=== PATIENT | female | born 1940 | race Caucasian/White ===

== ENCOUNTER 2018-02-15 07:13 | Day surgery (SDC) | payer MEDICARE, BC ==
--- NOTE | 2018-02-06 17:19 | HP ---
CC: Dr. Valeriy Steel * PREOPERATIVE HISTORY AND PHYSICAL: DATE OF ADMISSION: 02/15/18 This patient is scheduled for same-day surgery admission by Dr. Ruvalcaba on , 02/15/18. DATE OF PREOPERATIVE HISTORY AND PHYSICAL EXAMINATION: 02/06/18. ATTENDING SURGEON: Dr. Ghulam Ruvalcaba * (dictated by Beatris Deshpande NP). CHIEF COMPLAINT: Abdominal pain. HISTORY OF PRESENT ILLNESS: The patient is a 77-year-old female referred to Dr. Ruvalcaba by Dr. Steel for evaluation of upper abdominal pain. She has a history of certain movements causing intense pain in the upper abdomen to the right of midline. This first started in October of this year. It usually spontaneously resolves. She has had multiple abdominal surgeries including laparoscopic repair of a giant paraesophageal hiatal hernia with anterior plication with patch repair of the left upper quadrant ventral hernia, extensive lysis of adhesions, and repair of a small bowel serosal tear in [address] Ruvalcaba. More recently, she has had a CAT scan of the abdomen and pelvis , which Dr. Ruvalcaba reviewed; she denies any signs or symptoms that suggest incarceration or strangulation. She does have intermittent acid reflux and occasionally has early satiety. Dr. Ruvalcaba examined the patient and notes a tender mass to the right of the midline above the umbilicus that feels like a small ventral hernia with an approximate 2-cm defect. This corresponds to the area seen on the CT scan. Furthermore, she has a moderately large paraesophageal-type hiatal hernia and the contrast does pass through. Dr. Ruvalcaba discussed the findings with the patient and because the ventral hernia is symptomatic, he has recommended open ventral hernia repair with mesh as a same-day surgery procedure. Dr. Ruvalcaba discussed the nature of the surgical procedure, the relevant risks and benefits, and today I reviewed the expected postoperative care and recovery. The patient has had a chance to ask questions and stated that she understands the information and is satisfied with the answers given to her questions. She will sign surgical consent on the day of surgery. PAST MEDICAL HISTORY: Significant for hypertension, GERD, dyslipidemia, and osteoporosis. PAST SURGICAL HISTORY: Laparoscopic repair of giant paraesophageal hernia with anterior plication with patch repair, left upper quadrant ventral hernia, extensive lysis of adhesions and repair of small bowel serosal tear, 2008, by Dr. Ruvalcaba; left knee surgery in 1993; total abdominal hysterectomy and bilateral salpingo- oophorectomy in 1989. MEDICATIONS: 1. Lisinopril/hydrochlorothiazide 10/12.5 mg p.o. daily. 2. Pantoprazole 40 mg p.o. daily. 3. Tylenol Extra Strength 500 mg 2 tablets p.o. t.i.d. p.r.n. 4. Vitamin B12 1000 mcg p.o. daily. 5. Oxaprozin 600 mg b.i.d. p.r.n. ALLERGIES: PENICILLIN and AMPICILLIN caused unspecified reaction, VICODIN and DARVOCET cause GI upset, and most SURGICAL TAPES cause blistering of the skin. FAMILY HISTORY: No known anesthesia complications or bleeding tendencies or clotting disorders. SOCIAL HISTORY: She lives with her daughter. She has never been a smoker. She is a . REVIEW OF SYSTEMS: Constitutional: No fevers, chills, excessive fatigue, or weight loss. Endocrine: No diabetes or thyroid disease. Hematologic: No easy bruising or bleeding. The patient has never received a blood transfusion as she is a Jain. Respiratory: No dyspnea on exertion. No chronic cough. Cardiovascular: No anginal chest pain or palpitations. Gastrointestinal: No nausea, vomiting, diarrhea, GI bleeding; she does take milk of magnesia 15 mL at bedtime for prevention of constipation; she denies any change in bowel habits; she does have intermittent heartburn and does have a moderately large paraesophageal- type hiatal hernia; she does experience intermittent early satiety; Dr. Ruvalcaba indicated with regard to the hiatal hernia that she is only mildly symptomatic from that and surgery is not indicated at this time. Genitourinary : No dysuria. Musculoskeletal: Osteoporosis. She walks with a cane. Integumentary: No chronic rashes or skin changes. Neurologic: No headache, blurred vision. No areas of focal weakness or numbness. General: No history of deep vein thrombosis or pulmonary embolism. She states with previous anesthesia, she was nauseated. PHYSICAL EXAMINATION GENERAL: The patient is a 77-year-old female, well developed, overweight, in no acute distress. VITAL SIGNS: Height 61 inches, weight 183 pounds, body mass index 34.6, blood pressure 118/78, pulse 66 and regular, respiratory rate 18, temperature 97.6 tympanic. HEENT: Benign. NECK: Supple. No cervical lymphadenopathy. No supraclavicular lymphadenopathy. LUNGS: Breath sounds bilaterally clear and equal. HEART: Regular rate and rhythm. No murmurs or rubs appreciated. ABDOMEN: Active bowel sounds, well-healed surgical scars. Soft and nondistended. There is a tender palpable mass to the right of the midline above the umbilicus that feels like a small ventral hernia with an approximate 2-cm defect. No other obvious masses or organomegaly. No skin fold rashes. EXTREMITIES: Warm without edema or skin ulcerations. PELVIC AND RECTAL: Exams deferred. NEUROLOGIC: Alert and oriented x3. Gait is steady with the use of cane. BACK: No CVA tenderness. SKIN: Warm, dry, intact. IMPRESSION: Ventral hernia. PLAN: Same-day surgery admission to Dr. Ruvalcaba's service on , 02/15/18 , for open ventral hernia repair with mesh. EUGENE DESHPANDE, ASHLEIGH [id number]/[facility] #: [id number] PHAN
[~2018-02-15 07:13] MED LIST: Buffered Lidocaine 0.9% SYRIN* 5 ML/SYR SYRINGE INTRADERM ONE; Buffered Lidocaine 0.9% SYRIN* 5 ML/SYR SYRINGE ONE; Clindamycin 900 MG/D5W BAG(*) 900 MG/50 ML BAG IVPB ONE; Dexamethasone TAB* 4 MG ONE; Dexamethasone TAB* 4 MG PO ONE; DiMENhydriNATE IV* 50 MG/ML VIAL IV PUSH PRN; Famotidine IV* 10 MG/ML 2 ML (20 mg) IV ONE; Famotidine IV* 10 MG/ML 2 ML (20 mg) ONE; Naloxone* 0.4 MG/ML 1 ML VIAL IV PRN; Ondansetron ODT TAB* 4 MG ONE; Ondansetron TAB* 4 MG PO ONE; PROCHLORPERAZINE INJ 5 MG/ML 2 ML VIAL IV PRN; fentaNYL* 50 MCG/ML 2 ML VIAL (100 MCG VIAL) IV PRN
[2018-02-15] MEDS ORDERED: Midazolam* 1 MG/ML 5 ML VIAL (5 MG) ONE (08:01)
[2018-02-15] MEDS ORDERED: fentaNYL* 50 MCG/ML 2 ML VIAL (100 MCG VIAL) ONE (08:01)
[2018-02-15] MEDS ORDERED: KETAMINE HCL* 50 MG/ML 10 ML VIAL ONE (08:01)
[2018-02-15] MEDS ORDERED: Lidocaine 1% INJ* 10 MG/ML 30 ML SDV ONE (08:21)
[2018-02-15] MEDS ORDERED: Bupivacaine 0.5% SDV PF* 30ML VIAL ONE (08:21)
[2018-02-15] MEDS ORDERED: Propofol* 10 MG/ML 20 ML BTL IV PUSH ONE (09:33)
[2018-02-15] MEDS ORDERED: Lidocaine 2% PF * 5 ML VIAL ONE (09:33)
--- NOTE | 2018-02-15 09:44 | OP ---
Operative Report - Blank - Operative Report Date of Operation: 02/15/18 Note: Brief Operative Note Preop Dx: ventral hernia Postop Dx: same Procedure: open repair ventral hernia w/ mesh Anesthesia: local MAC Surgeon: Peg Wheelman: ANGELA Cherry Fluids: 500 ml EBL: 25 ml Specimen: none Drains: none Findings: dictated
[2018-02-15] MEDS ORDERED: Acetaminophen TAB* 325 MG ONE (10:44)
[2018-02-15 11:30] VITALS: BP 141/73
--- NOTE | 2018-02-16 00:46 | OP ---
CC: Dr. Ruvalcaba; Dr. Steel OPERATIVE REPORT: DATE OF OPERATION: 02/15/18 DATE OF : 44 SURGEON: Ghulam Ruvalcaba MD QUANTITATIVE DEVELOPER: ANGELA Park ANESTHESIOLOGIST: Dr. Bill ANESTHESIA: LMAC anesthesia. PRE-OP DIAGNOSIS: Ventral hernia. POST-OP DIAGNOSIS: Ventral hernia. OPERATIVE PROCEDURE: Open repair of ventral hernia with mesh. DESCRIPTION OF PROCEDURE: The patient was supine on the operative table. After adequate intravenous sedation, compression stockings, Braydon Hugger warmer, and intravenous antibiotics, the abdomen was pr epped with antiseptic and draped in a sterile fashion. Local infiltrative anesthesia was administere d and approximately 3 to 4 cm incision was created midway between the xiphoid and the umbilicus. Appr oximately, 3 to 4 cm hernia was identified which reduced down to about a 2 to 3 cm defect. The prepe ritoneal plane was developed. Palpation internally revealed the old mesh to be secure. I think the bulging above the umbilicus is just some bulging of the mesh in that area. There is no true defect. Therefore, an 8 cm underlay patch was chosen. This was secured in 8 places around the circumference with #1 Vicryl up to the abdominal wall and then the fascia was closed over top with 0 Vicryl which was used to attach to the patch as well. Adipose was reapproximated with 3-0 Vicryl and skin closed with 4-0 Vicryl followed by Steri- Strips. She tolerated the procedure well, was brought to Recovery in good condition. There were no complications. No drains. No pathologic specimen. Sponge, instru ments counts correct. Estimated blood loss 20 mL. [id number]/[facility] #: [id number]
== END 2018-02-15 11:38 | disposition home or self-care (01) ==
LOC: OR 07:13
PROVIDERS: ATTEND Surgery
DX: K43.9 Ventral hernia without obstruction or gangrene (principal); I10 Essential (primary) hypertension; K21.9 Gastro-esophageal reflux disease without esophagitis; E78.5 Hyperlipidemia, unspecified; M81.0 Age-related osteoporosis without current pathological fracture
CPT/HCPCS: A9270-GY; C1781; J2250; J2704; J3010; J8540

== ENCOUNTER 2018-04-17 12:52 | Emergency (ER) | payer MEDICARE, BC ==
--- OUTSIDE RECORDS SUMMARY | 2018-04-17 12:58 | XMS REPORT | Continuity of Care Document ---
:1940 External Reference #:[id number] Author Name Valeriy Steel M.D. Address [address] [facility] [address] [place] [address] Care Team Providers Name Role Phone HCP/LW on file Primary Care Physician Unavailable Payers Type Date Identification Numbers Payment Provider Subscriber Effective: Policy Number: [id number] [facility] Santiago Menardham 2007 Services PayID: [id number] [address] [place] [address] Effective: 2014 Policy Number: [id number] [place] Santiago Isidro Group Number: [id number] [address] PayID: [id number] [place] [address] Advance Directives Description No Information Available Problems Date Description Provider Status Onset: 01/18/2003 Localized, secondary osteoarthritis Valeriy Steel M.D. Active Onset: 01/18/2003 Disorder of lipid metabolism Valeriy Steel M.D. Active Onset: 01/18/2003 Morbid obesity Valeriy Steel M.D. Active Onset: 08/03/2005 Benign essential hypertension Valeriy Steel M.D. Active Onset: 08/03/2005 Degeneration of lumbar intervertebral Valeriy Steel M.D. Active disc Onset: 03/23/2011 Impaired fasting glycaemia Valeriy Steel M.D. Active Onset: 03/23/2011 History of polyp of colon Valeriy Steel M.D. Active Onset: 09/24/2012 Gastroesophageal reflux disease Valeriy Steel M.D. Active Onset: 09/24/2012 Osteochondropathy Valeriy Steel M.D. Active Onset: 11/23/2012 Backache Zbigniew Kellogg D.O. Active Onset: 11/23/2012 Myalgia & Myositis Unspecified Zbigniew Kellogg D.O. Active Onset: 03/29/2017 Osteoporosis Valeriy Steel M.D. Active Family History Date Family Member(s) Problem(s) Comments Onset: (age 60 Father [place] Years) : (age Father due to [place] 60 Years) Father Cancer Father Heart Disease Mother Non Insulin Dependent Diabetes Mother due to Diabetes () - complications First Son [place] First Son 1965 First Daughter Ashlyn Carlos Enrique First Daughter 1968 First Brother Obesity First Brother due to Diabetes () - complications First Brother Diabetes, Type II First Brother Jessie Anthony First Brother 11/22/84 Second Brother Heart Disease Second Brother Abel Anthony Second Brother 02/20/38 First Sister Non Insulin Dependent Diabetes First Sister Hypertension First Sister [place] Social History Type Date Description Comments Sex Unknown Education Highest level of education completed is 12th grade Marital Status Patient is ( 07/10/14) Employment Not currently working; retired. Tobacco Use Start: Unknown Tobacco Of Any Kind Denies Use ETOH Use Never used alcohol Tobacco Use Start: Unknown Patient has never smoked Smoking Status Reviewed: 09/26/17 Patient has never smoked Sun Exposure Minimum amount of sun exposure. Does not use sunscreen Seat Belt/Car Seat Always uses a seat belt Currently Active The patient is currently sexually active. Contraceptive Methods Does not currently use any method of control Age 1st [place] First intercourse was at age 22 Allergies, Adverse Reactions, Alerts Date Description Reaction Status Severity Comments 03/13/2009 Penicillins Active hives 03/13/2009 Ampicillin Active hives 03/13/2009 Vicodin Active GI effects Medications Medication Date Status Form Strength Qnty SIG Indications Ordering Provider PT For Low Back 04/14 Active please M54.5 Damián Pain evaluate aisha Crooks M.D. modalities as needed, instruct in hep Pantoprazole 09/[address] 40mg one po K21.9 Unknown daily Sulfamethoxazole 03/29 Active Tablets 800-160mg 30tab 1 by mouth N39.0 Silcoanaid, /Trimethoprim DS /2016 s twice a day Valeriy, x3 days; Ayaan use at onset of urinary tract infections; repeat as needed Tylenol Extra 09/26 Active Tablets 500mg 2 by mouth Silcoanaid, Strength twice a day Ayaan Crooks Lisinopril-Hessel 04/01 Active Tablets 10-12.5mg 90tab 1 by mouth I10 Silcoff, chlorothiazide s every Valeriy, morning for M.D. high blood pressure Vitamin B-12 11/19 Active Tablets Sub 1000mcg 1 tab Unknown sublingual every day. Phenazopyridine 03/27 Active Tablets 100mg 30tab 1-2 by N30.00 Silcoff, HCL s mouth three Valeriy, times a day M.D. as needed for bladder pain/spasms Oxaprozin 03/26 Active Tablets 600mg 60tab take 2 M25.569 Silcoanaid, s tablets Valeriy, every day M.DJaneth as needed for knee pain Shingrix 09/26 Hx Suspension 50mcg 2unit administer Z23 anitra Rec s 2 doses as Evonne Crooks M.D. 11/28 per cdc /2018 guidelines Prolia 03/29 Hx Solution 60mg/ml 1unit inject M81.0 s under the Evonne Crooks skin 1cc MGeoff 04/08 every months; blood test needed 2wks after each injection (to check calcium level) Azithromycin 08/04 Hx Tablets 250mg 6tabs take 2 J20.9 Sopcha, tablets by Zbigniew, - mouth one D.O. 09/26 time on then take 1 tablet by mouth daily for 4 days Azithromycin 07/26 Hx Tablets 250mg 6tabs take 2 J20.9 Sopchak, tablets by Zbigniew, - mouth one D.O. 07/31 time on the day then take 1 tablet by mouth daily for 4 days Guaifenesin ac 07/26 Hx Syrup 100-10mg/ 100un 1 teaspoon R05 5ML its every 12 Zbigniew, - hours, as D.O. 09/26 needed for cough Esomeprazole 04/[address] 40mg one cap po K21.9 Unknown Magnesium twice daily - for acid 09/15 reflux Prednisolone 09/26 Hx Suspension 1% instill 1 H40.11x1 Unknown Acetate drop into - left eye 10/22 three times a day for 3 days after eye surgery (on 10/19/15) then Discontinue Alendronate 03/18 Hx Tablets 70mg 12tab 1 tablet by M81.0 Silcoff, Sodium s mouth Valeriy, - weekly, for M.D. 12/06 osteoporosi s PT For Recurrent 03/04 Hx please M54.5 Silcoff, Low Back Pain evaluate Valeriy, - and treat, M.DJaneth 03/30 instruct in hep, modalities prn Ciprofloxacin 03/01 Hx Tablets 500mg 14tab Take 1 N39.0 Unknown HCL s Tablet By - Mouth Twice 03/04 Daily x Days Acetaminophen-Co 03/01 Hx Tablets 300-30mg 10tab Take 1 Unknown deine #3 s Tablet By - Mouth Every 03/30 4 To Hours as Needed For Pain Bactrim DS 11/19 Hx Tablets 800-160mg 14tab 1 tab twice 465.9 Silcoff, /2014 s daily for 7 Valeriy, - days M.D. 11/26 Alendronate 04/01 Hx Tablets 70mg 12tab 1 by mouth 733.00 Silcoff, Sodium s qwk on an Valeriy, - empty M.D. 09/29 stomach. take w/ 8oz of water. don't eat anything or lie down for 30min after taking this med Viactiv 03/31 Hx Chewtabs 500-500-4 3 by mouth 733.00 0mg-Unt-m every day - cg 09/30 Tylenol/Codeine 11/23 Hx Tablets 300-30mg 30tab 1 by mouth 724.5 Sopflorik, #3 s three times Zbigniew, - a day D.O. 09/13 Tramadol HCL 11/18 Hx Tablets 50mg 1 tablet po every 8 hrs - for pain 09/05 Cyclobenzaprine 11/18 Hx Tablets 10mg 1/2 tablet Unknown HCL 1-2 times a - day 09/05 Lidia Dietary 09/23 Hx 1-2 Unknown Supplement capsules Nutrients IV W/ - daily Copper & Fe 09/05 Glucosamine 09/11 Hx Tablets Silcoff, Chondroitin MSM Valeryi - M.DJaneth 03/28 Copper / Iron 09/11 Hx Capsules 2mg Silcoff Valeriy, - M.DJaneth 09/24 Lisinopril/Hessel 04/03 Hx Tablets 10-12.5mg 90tab 1 by mouth 401.1 Silcoff, chlorothiazide s every Valeriy, - morning for M.D. 04/01 high blood pressure Lisinopril/Hessel 03/23 Hx Tablets 10-12.5mg 1/2 by 401.1 Silcoff, chlorothiazide mouth every Valeriy, - morning for .D. 04/03 high blood pressure Fluconazole 03/23 Hx Tablets 150mg 3tabs take one 616.10 Silcoff, tablet by Valeriy, - mouth as M.D. 03/31 one dose needed for vaginal yeast infections Cipro 12/03 Hx Tablets 500mg 14tab 1 po bid x1 Silcoff, s week Valeriy, - M.D. 03/22 Sulfamethoxazole 11/30 Hx Tablets 800-160mg 14tab 1 by mouth 595.0 Silcoff, /Trimethoprim s twice a day Valeriy, Evonne for 1 week, M.D. 12/07 for UTI Phenazopyridine 11/30 Hx Tablets 100mg 20tab 1-2 by 595.0 Silcoff, HCL s mouth three Valeriy, - times a day M.D. 12/07 as needed for bladder pain/spasms Sulfamethoxazole 08/10 Hx Tablets 800-160mg 20tab 1 po bid 680.2 Immanuel /Trimethoprim DS s A. - Klepack, 08/20 M.D. Lisinopril/Hessel 03/11 Hx Tablets 10-12.5mg 90tab 1 tablet 401.1 Silcoff, chlorothiazide s daily in Valeriy, - the morning M.D. 03/23 for high blood pressure Pantoprazole 06/[address] 40mg 180ta 1 by mouth K21.9 Silcoff, Sodium bs twice a day Valeriy, - for acid M.D. 07/25 reflux /2016 PT For L Knee 11/11 Hx evaluate 719.46 Silcoff, Pain(Poss and treat, Valeriy, Quintero's Cyst; - modalties M.D. ?Hamstring 12/12 prn, Tendonitis) instruct in hep Power Lift Chair 10/17 Hx use as 715.26 Silcoff directed Evonne CrooksDJaneth 09/19 722.52 724.4 Oxaprozin 09/09/2008 - Hx Tablets 600mg 180tabs 1-2 po qd prn 724.4 Silcoff, 05/08/2009 for arthritic Ayaan Crooks pain 722.52 715.26 Nexium 03/24/2008 - Hx Capsules DR 40mg 30caps 1 PO qd For Silcoff, 09/09/2008 Acid Reflux Ayaan Crooks Tylenol 03/10/2008 - Hx Tablets ER 650mg Silcoff, Arthritis Pain 09/27/2015 Ayaan Crooks Bactrim DS 07/26/2007 - Hx Tablets 800-160 20tabs 1 bid Until 461 Immanuel A. 08/05/2007 Gone .0 Ayaan Sampson Pravastatin 01/30/2007 - Hx Tablets 40mg 90tabs 1 po qd in 272 Silcoff, Sodium 10/21/2008 evening for .8 high Ayaan Crooks cholesterol Naproxen Sodium 02/07/2006 - Hx Tablets 550mg 180tabs 1/2-1 po bid 724 Silcoff, 03/13/2009 prn .4 Ayaan Crooks 722.52 715.26 Lisinopril & 04/06/2005 - Hx Tablets 10mg;12.5 mg 90tabs 1 po qd for 401.1 Silcoff, HCTZ 03/11/2010 high blood Valeriy pressure M.D. Lisinopril 03/09/2005 - Hx Tablets 10mg 30tabs 1 po qd for 401.1 Silcoff, 04/06/2005 high blood Valeriy, pressure M.D. HCTZ 02/02/2005 - Hx Capsules 12.5mg 90caps 1 po qd for 401.1 Silcoff, 04/06/2005 high blood Valeriy, pressure M.D. Naproxen 01/18/2005 - Hx Tablets 550mg 180tabs 1 po bid 724.4 Silcoff, Sodium 02/07/2006 prn Ayaan Crooks 722.52 Propoxy-N 01/18/2005 - 03/09/2005 Hx Capsules 100mg 724.4 Unknown 722.52 PT Referral For 01/18/2005 - Hx Evaluate And 724.4 Silcoff, Lumbar 03/09/2005 TreatValeriy Radiculopathy Instruct In M.Ramona. Hep, Modalities prn Tylenol 01/01/2005 - Hx Tablets 300mg; 60ta 1 po q4h pain 724.2 klepack Codeine #3 03/09/2005 30 mg bs Flexeril 01/01/2005 - Hx Tablets 10mg 30ta 1 PO tid 724.2 klepack 02/07/2006 bs DO Not Operate Heavy Equipment While On Meds Nasonex Nasal 11/09/2004 - Hx 1uni 2 Sprays Each 477.9 Silcoff, Crucible 01/31/2008 ts Nostril Once A Sherry Crooks M.D. Lipitor 01/18/2003 - Hx Tablets 10mg 90ta 1 po qd supper 272.8 Silcoff, 01/30/2007 bs time to reduce Valeriy cholesterol Ayaan Celebrex 01/17/2003 - Hx Capsules 200mg 90ca 1 po qd Silcoff, 04/06/2005 ps Ayaan Crooks Celebrex 01/10/2003 - Hx Capsules 200mg 1 po qd Silcoff, 01/10/2003 Ayaan Crooks Bextra 01/10/2003 - Hx Tablets 20mg 6tab 1/2 po qd with Silcoff, 01/17/2003 s food Ayaan Crooks Macrodantin 01/10/2003 - Hx Capsules 100mg 90ca 1 by mouth N39.0 Silcoff, 03/29/2017 ps every day as Valeriy needed to Ayaan prevent urinary tract infections Nystatin Tab - Hx 1 qd 616.10 Unknown 03/23/2011 Alendronate - Hx Tablets 70mg 1 by mouth qwk 733.00 Unknown Sodium 07/25/2014 on an empty stomach. take w/ 8oz of water. don't eat anything or lie down for 30min after taking this med Viactiv - Hx Chewtabs 500-50 733.00 Unknown 09/24/2013 0-40mg -Unt-m cg Medications Administered in Office Medication Date Status Form Strength Qnty SIG Indications Ordering Provider injection, Administered Injection Silcoff, kenalog, 10 mg 016 Ayaan Crooks B12 Injection Administered Injection Nurse's 011 Schedule SC/Im Administered Injection Nurse's Injections 011 Schedule B12 Injection Administered Injection Nurse's 011 Schedule SC/Im Administered Injection Nurse's Injections 011 Schedule B12 Injection Administered Injection Nurse's 011 Schedule SC/Im Administered Injection Nurse's Injections 011 Schedule B12 Injection Administered Injection Silcoff, 011 Ayaan Crooks SC/Im Administered Injection Silcoff, Injections 011 Ayaan Crooks H1N1 Swine Flu Administered Injection Nurse's Vaccine 010 Schedule injection, Administered Injection Silcoff, kenalog, 10 mg 009 Ayaan Crooks Immunizations CPT Code Status Date Vaccine Lot # [id number] Given 02/01/2018 Influenza Vaccine, Inactivated, Subunit, Adjuvanted, For Intrmusc 57551 Given 11/29/2017 Shingrix Zoster (Shingles) Vaccine (HZV) Recomb,Subnit,Adjuvanted 35073 Given 09/27/2017 Shingrix Zoster (Shingles) Vaccine (HZV) Recomb,Subnit,Adjuvanted 34388 Given 02/15/2017 Influenza Vaccine Split Virus Preservative Free Im Use 67397 Given 01/19/2016 Influenza Vaccine Split Virus Preservative Free Im Use 95697 Given 03/30/2015 Adacel or Boostrix, TDaP [id number] 43213 Given 03/30/2015 Prevnar 13 [id number] 13938 Given 03/11/2015 Influenza Vaccine Split Virus Preservative Free Im Use 27739 Given 01/10/2014 Influenza Vaccine Split Virus Preservative Free Im [id number] Use 71541 Given 01/17/2013 Flu, Split Virus 3Yrs [id number] 55314 Given 01/13/2012 Flu, Split Virus 3Yrs [id number] 27609 Given 01/26/2011 Flu, Split Virus 3Yrs [id number] 97631 Given 01/27/2010 Flu, Split Virus 3Yrs [id number] 24442 Given 02/07/2009 Flu, Split Virus 3Yrs [id number] 82251 Given 09/09/2008 Pneumococcal Immunization [id number] 39284 Given 05/20/2008 Zostavax [id number] 16704 Given 02/08/2008 Flu, Split Virus 3Yrs [id number] 97066 Given 01/30/2007 Flu, Split Virus 3Yrs [id number] 27690 Given 03/18/2006 Flu, Split Virus 3Yrs [id number] 19187 Given 08/03/2005 Td Immunization [id number] 86981 Given 03/09/2005 Flu, Split Virus 3Yrs 74298 Given 03/11/2003 Flu, Split Virus 3Yrs [id number] Refused 01/30/2007 Zostavax Vital Signs Date Vital Result Comment 04/14/2018 9:37am BP Systolic 138 mmHg BP Diastolic 70 mmHg BP Systolic Recheck 142 mmHg R arm sitting BP Diastolic Recheck 78 mmHg R arm sitting Height 61 inches 5'1" with boots Weight 192.00 lb with boots BMI (Body Mass Index) 36.3 kg/m2 12/22/2017 3:36pm BP Systolic 120 mmHg BP Diastolic 58 mmHg Weight 183.00 lb 09/26/2017 11:37am BP Systolic 122 mmHg BP Diastolic 62 mmHg Height 61 inches 5'1" with shoes Weight 185.00 lb with shoes BMI (Body Mass Index) 35.0 kg/m2 03/29/2017 10:23am BP Systolic 138 mmHg BP Diastolic 70 mmHg Weight 183.00 lb 09/27/2016 10:12am BP Systolic 128 mmHg BP Diastolic 75 mmHg Weight 183.00 lb with shoes 07/26/2016 1:46pm BP Systolic 126 mmHg BP Diastolic 78 mmHg Body Temperature 98.1 F Weight 176.00 lb with shoes 03/30/2016 12:54pm BP Systolic 98 mmHg BP Diastolic 82 mmHg BP Systolic Recheck 116 mmHg R arm sitting BP Diastolic Recheck 68 mmHg R arm sitting Height 61.75 inches 5'1.75" with boots Weight 181.00 lb with boots BMI (Body Mass Index) 33.4 kg/m2 10/16/2015 2:00pm BP Systolic 126 mmHg BP Diastolic 60 mmHg Weight 191.00 lb w/shoes 09/28/2015 12:54pm BP Systolic 115 mmHg BP Diastolic 70 mmHg BP Systolic Recheck 118 mmHg R arm sitting BP Diastolic Recheck 70 mmHg R arm sitting Height 61 inches 5'1" Weight 189.00 lb with shoes BMI (Body Mass Index) 35.7 kg/m2 03/30/2015 12:21pm BP Systolic 144 mmHg BP Diastolic 68 mmHg BP Systolic Recheck 146 mmHg R arm sitting BP Diastolic Recheck 70 mmHg R arm sitting Heart Rate 62 /min reg Height 61.50 inches 5'1.50" w/shoes Weight 187.00 lb w/shoes BMI (Body Mass Index) 34.8 kg/m2 03/04/2015 11:27am BP Systolic 124 mmHg BP Diastolic 66 mmHg Weight 190.00 lb 11/19/2014 5:08pm BP Systolic 136 mmHg BP Diastolic 70 mmHg Heart Rate 72 /min reg Body Temperature 98.6 F Pt. states this is high for her. Weight 185.00 lb with shoes 09/30/2014 3:51pm BP Systolic 120 mmHg R arm sitting BP Diastolic 68 mmHg R arm sitting Height 61 inches 5'1" Weight 183.00 lb BMI (Body Mass Index) 34.6 kg/m2 04/01/2014 11:26am BP Systolic 124 mmHg BP Diastolic 76 mmHg Height 61 inches 5'1" Weight 186.00 lb BMI (Body Mass Index) 35.1 kg/m2 09/27/2013 12:54pm BP Systolic 122 mmHg BP Diastolic 78 mmHg Height 60 inches 5'0" Weight 189.00 lb BMI (Body Mass Index) 36.9 kg/m2 03/29/2013 2:21pm BP Systolic 120 mmHg BP Diastolic 70 mmHg Height 61 inches 5'1" Weight 191.00 lb BMI (Body Mass Index) 36.1 kg/m2 02/27/2013 12:39pm BP Systolic 124 mmHg BP Diastolic 79 mmHg Heart Rate 64 /min reg Respiratory Rate 16 /min not laboured Body Temperature 97.9 F Weight 189.00 lb 11/23/2012 10:10am BP Systolic 126 mmHg BP Diastolic 78 mmHg Weight 190.00 lb 09/24/2012 1:04pm BP Systolic 140 mmHg BP Diastolic 68 mmHg BP Systolic Recheck 130 mmHg R arm sitting BP Diastolic Recheck 68 mmHg R arm sitting Heart Rate 64 /min reg Height 62 inches 5'2" Weight 192.00 lb BMI (Body Mass Index) 35.1 kg/m2 03/26/2012 11:07am BP Systolic 120 mmHg BP Diastolic 70 mmHg BP Systolic Recheck 150 mmHg R arm sitting BP Diastolic Recheck 70 mmHg R arm sitting Weight 184.00 lb Last Menstrual Period 0 09/21/2011 10:33am BP Systolic 110 mmHg BP Diastolic 66 mmHg BP Systolic Recheck 102 mmHg R arm sitting BP Diastolic Recheck 60 mmHg R arm sitting Height 62 inches 5'2" Weight 190.00 lb BMI (Body Mass Index) 34.7 kg/m2 Last Menstrual Period 0 03/23/2011 10:16am BP Systolic 108 mmHg BP Diastolic 60 mmHg BP Systolic Recheck 106 mmHg R arm sitting BP Diastolic Recheck 62 mmHg R arm sitting Weight 186.00 lb 11/30/2010 11:43am BP Systolic 110 mmHg BP Diastolic 64 mmHg Weight 190.00 lb 09/14/2010 10:11am BP Systolic 128 mmHg BP Diastolic 64 mmHg Height 62 inches 5'2" Weight 199.00 lb BMI (Body Mass Index) 36.4 kg/m2 08/10/2010 4:35pm BP Systolic 134 mmHg BP Diastolic 80 mmHg 03/17/2010 8:55am BP Systolic 126 mmHg BP Diastolic 62 mmHg Height 61 inches 5'1" Weight 198.50 lb BMI (Body Mass Index) 37.5 kg/m2 09/14/2009 8:45am BP Systolic 130 mmHg BP Diastolic 70 mmHg Weight 221.00 lb 03/13/2009 10:02am BP Systolic 132 mmHg BP Diastolic 72 mmHg Weight 252.00 lb 12/12/2008 10:44am BP Systolic 140 mmHg BP Diastolic 74 mmHg Weight 248.00 lb Last Menstrual Period 0 11/11/2008 1:44pm BP Systolic 142 mmHg BP Diastolic 80 mmHg 10/24/2008 2:48pm BP Systolic 164 mmHg BP Diastolic 80 mmHg Height 62 inches 5'2" Weight 250.00 lb w/shoes BMI (Body Mass Index) 45.7 kg/m2 09/09/2008 9:32am BP Systolic 120 mmHg BP Diastolic 62 mmHg Heart Rate 72 /min reg Weight 245.00 lb Last Menstrual Period 0 03/10/2008 10:30am BP Systolic 140 mmHg BP Diastolic 72 mmHg Height 62 inches 5'2" Weight 242.00 lb BMI (Body Mass Index) 44.3 kg/m2 01/31/2008 12:16pm BP Systolic 122 mmHg BP Diastolic 74 mmHg Body Temperature 98.1 F Height 62 inches 5'2" Weight 243.00 lb purposeful weight loss. cutting back BMI (Body Mass Index) 44.4 kg/m2 07/26/2007 1:42pm BP Systolic 152 mmHg BP Diastolic 86 mmHg Body Temperature 98.0 F Height 62 inches 5'2" Weight 247.50 lb BMI (Body Mass Index) 45.3 kg/m2 05/09/2007 1:06pm BP Systolic 138 mmHg BP Diastolic 78 mmHg Height 62 inches 5'2" Weight 247.00 lb BMI (Body Mass Index) 45.2 kg/m2 01/30/2007 11:50am BP Systolic 116 mmHg BP Diastolic 76 mmHg Height 62 inches 5'2" Weight 247.00 lb BMI (Body Mass Index) 45.2 kg/m2 07/10/2006 8:48am BP Systolic 142 mmHg BP Diastolic 80 mmHg Height 62 inches 5'2" Weight 255.00 lb BMI (Body Mass Index) 46.6 kg/m2 02/07/2006 1:42pm BP Systolic 144 mmHg BP Diastolic 80 mmHg BP Systolic Recheck 150 mmHg L arm sitting BP Diastolic Recheck 76 mmHg L arm sitting Heart Rate 76 /min reg Height 62 inches 5'2" Weight 257.00 lb BMI (Body Mass Index) 47.0 kg/m2 08/03/2005 9:21am BP Systolic 120 mmHg BP Diastolic 75 mmHg BP Systolic Recheck 126 mmHg R arm sitting BP Diastolic Recheck 76 mmHg R arm sitting Heart Rate 72 /min reg Height 62 inches 5'2" 04/06/2005 9:50am BP Systolic 120 mmHg BP Diastolic 65 mmHg BP Systolic Recheck 114 mmHg R arm sitting BP Diastolic Recheck 68 mmHg R arm sitting Height 62 inches 5'2" Weight 255.00 lb BMI (Body Mass Index) 46.6 kg/m2 03/09/2005 9:44am BP Systolic 144 mmHg BP Diastolic 70 mmHg Weight 260.00 lb 02/02/2005 8:54am BP Systolic 164 mmHg BP Diastolic 76 mmHg BP Systolic Recheck 146 mmHg R arm sitting BP Diastolic Recheck 74 mmHg R arm sitting Heart Rate 76 /min reg Weight 260.00 lb 01/18/2005 10:54am BP Systolic 146 mmHg BP Diastolic 72 mmHg Weight 259.00 lb 01/01/2005 11:58am BP Systolic 140 mmHg recheck BP Diastolic 80 mmHg recheck 01/01/2005 11:21am BP Systolic 160 mmHg BP Diastolic 90 mmHg Weight 254.00 lb Last Menstrual Period 0 11/09/2004 3:58pm BP Systolic 146 mmHg BP Diastolic 86 mmHg BP Systolic Recheck 164 mmHg R arm sitting BP Diastolic Recheck 86 mmHg R arm sitting Body Temperature 97.9 F Weight 259.00 lb Last Menstrual Period 0 Results Test Date Facility Test Result H/L Range Note Laboratory test finding 04/14/2018 In House Hemoglobin A1c 5.5 Laboratory test finding 03/29/2017 In House Hemoglobin A1c 5.5 Urine Micro Inhouse 03/29/2017 In House Ua WBC 5-6 1 Ua RBC - Ua Casts - Ua Epi 5 Ua Other 4-5 bacteria Ua Glucose - Ua Bilirubin lg, 3+ Ua Ketones - Ua Specific [place] 1.030 Ua Blood - Ua PH 5.0 Ua Protein - Ua Urobilinogen - Ua Nitrite - Ua Leukocytes tr CBC Auto Diff 03/20/2017 [facility] White Blood Count 4.8 10^3/uL N 3.5-10.8 [phone] Red Blood Count 4.31 10^6/uL N 4.0-5.4 Hemoglobin 13.0 g/dL N 12.0-16.0 Hematocrit 39 % N 35-47 Mean Corpuscular Volume 91 fL N 80-97 Mean Corpuscular Hemoglobin 30 pg N 27-31 Mean Corpuscular HGB Conc 33 g/dL N 31-36 Red Cell Distribution Width 14 % N 10.5-15 Platelet Count 285 10^3/uL N 150-450 Mean Platelet Volume 8 um3 N 7.4-10.4 Abs Neutrophils 2.5 10^3/uL N 1.5-7.7 Abs Lymphocytes 1.5 10^3/uL N 1.0-4.8 Abs Monocytes 0.7 10^3/uL N 0-0.8 Abs Eosinophils 0.1 10^3/uL N 0-0.6 Abs Basophils 0.1 10^3/uL N 0-0.2 Abs Nucleated RBC 0 10^3/uL Granulocyte % 52.2 % N 38-83 Lymphocyte % 30.6 % N 25-47 Monocyte % 14.0 % High 1-9 Eosinophil % 2.1 % N 0-6 Basophil % 1.1 % N 0-2 Nucleated Red Blood Cells % 0 Basic Metabolic Panel 03/20/2017 [facility] Sodium 137 mmol/L N 133- 145 [phone] Potassium 4.1 mmol/L N 3.5-5.0 Chloride 102 mmol/L N 101-111 Co2 Carbon Dioxide 28 mmol/L N 22-32 Anion Gap 7 mmol/L N 2-11 Glucose 99 mg/dL N 70-100 Blood Urea Nitrogen 17 mg/dL N 6-24 Creatinine 0.74 mg/dL N 0.51-0.95 BUN/Creatinine Ratio 23.0 High 8-20 Calcium 9.6 mg/dL N 8.6-10.3 Egfr Non- 76.7 >60 Egfr 98.7 >60 2 Urine Micro Inhouse 03/30/2016 In House Ua WBC - 3 Ua RBC - Ua Casts - Ua Epi many Ua Other sediment Ua Glucose - Ua Bilirubin - Ua Ketones - Ua Specific [place] 1.030 Ua Blood - Ua PH 5.0 Ua Protein - Ua Urobilinogen - Ua Nitrite - Ua Leukocytes - Laboratory test 03/30/2016 In House Hemoglobin A1c 5.7 finding CBC Auto Diff 03/22/2016 [facility] White Blood Count 6.2 10^3/uL N 3.5-10.8 [phone] Red Blood Count 4.34 10^6/uL N 4.0-5.4 Hemoglobin 12.9 g/dL N 12.0-16.0 Hematocrit 39 % N 35-47 Mean Corpuscular Volume 90 fL N 80-97 Mean Corpuscular Hemoglobin 30 pg N 27-31 Mean Corpuscular HGB Conc 33 g/dL N 31-36 Red Cell Distribution Width 14 % N 10.5-15 Platelet Count 266 10^3/uL N 150-450 Mean Platelet Volume 8 um3 N 7.4-10.4 Abs Neutrophils 3.9 10^3/uL N 1.5-7.7 Abs Lymphocytes 1.4 10^3/uL N 1.0-4.8 Abs Monocytes 0.7 10^3/uL N 0-0.8 Abs Eosinophils 0.1 10^3/uL N 0-0.6 Abs Basophils 0.1 10^3/uL N 0-0.2 Abs Nucleated RBC 0 10^3/uL N Granulocyte % 62.2 % N 38-83 Lymphocyte % 23.1 % Low 25-47 Monocyte % 11.8 % High 1-9 Eosinophil % 1.9 % N 0-6 Basophil % 1.0 % N 0-2 Nucleated Red Blood Cells % 0 N Basic Metabolic Panel 03/22/2016 [facility] Sodium 136 mmol/L N 133- 145 [phone] Potassium 4.2 mmol/L N 3.5-5.0 Chloride 102 mmol/L N 101-111 Co2 Carbon Dioxide 26 mmol/L N 22-32 Anion Gap 8 mmol/L N 2-11 Glucose 94 mg/dL N 70-100 Blood Urea Nitrogen 20 mg/dL N 6-24 Creatinine 0.87 mg/dL N 0.51-0.95 BUN/Creatinine Ratio 23.0 High 8-20 Calcium 9.8 mg/dL N 8.6-10.3 Egfr Non- 63.8 N >60 Egfr 82.1 N >60 4 Laboratory test 03/30/2015 In House Hemoglobin A1c 5.6 finding Basic Metabolic Panel 03/17/2015 [facility] Sodium 135 mmol/L N 133- 145 [phone] Potassium 4.0 mmol/L N 3.5-5.0 Chloride 101 mmol/L N 101-111 Co2 Carbon Dioxide 27 mmol/L N 22-32 Anion Gap 7 mmol/L N 2-11 Glucose 94 mg/dL N 70-100 Blood Urea Nitrogen 14 mg/dL N 6-24 Creatinine 0.76 mg/dL N 0.51-0.95 BUN/Creatinine Ratio 18.4 N 8-20 Calcium 9.4 mg/dL N 8.6-10.3 Egfr Non- 74.8 N >60 Egfr 96.2 N >60 5 Laboratory test 02/28/2015 [facility] Urine Culture And SEE RESULT 6 finding [phone] Sensitivities BELOW Urine Micro 09/30/2014 In House Ua WBC 2-3 Inhouse Ua RBC 0-1 Ua Casts - Ua Epi many Ua Other - Ua Glucose - Ua Bilirubin sm Ua Ketones - Ua Specific [place] 1.015 Ua Blood - Ua PH 6.0 Ua Protein tr Ua Urobilinogen - Ua Nitrite - Ua Leukocytes sm Laboratory test 04/01/2014 In House Hemoglobin A1c 5.6 finding Laboratory test 11/11/2013 [facility] TSH (Thyroid 0.84 IU/mL N 0.34- 5. finding [phone] Stimulating Horm) 60 Cortisol 7.80 g/dL N 7 Basic Metabolic Panel 11/11/2013 [facility] Sodium 137 mmol/L N 133- 145 [phone] Potassium 3.7 mmol/L N 3.7-5.6 Chloride 102 mmol/L N 101-111 Co2 Carbon Dioxide 26 mmol/L N 22-32 Anion Gap 9 mmol/L N 2-11 Glucose 99 mg/dL N 70-100 Blood Urea Nitrogen 16 mg/dL N 6-24 Creatinine 0.93 mg/dL N 0.51-0.95 BUN/Creatinine Ratio 17.2 N 8-20 Calcium 9.9 mg/dL N 8.6-10.3 Egfr Non- 59.4 N >60 Egfr 76.4 N >60 8 Urine Micro Inhouse 09/27/2013 In House Ua WBC 2-4 Ua RBC - Ua Casts - Ua Epi 0-2 Ua Other sediment Ua Glucose - Ua Bilirubin - Ua Ketones - Ua Specific [place] 1.005 Ua Blood - Ua PH 6.5 Ua Protein - Ua Urobilinogen - Ua Nitrite - Ua Leukocytes 2+ Laboratory test 03/29/2013 In House Hemoglobin A1c 5.5 finding Inr/Protime 03/04/2013 [facility] Inr 0.90 0.87-0.9 [phone] CBC Auto Diff 03/04/2013 [facility] White Blood Count 6.0 10^3/uL 4.8-10.8 [phone] Red Blood Count 4.23 10^6/uL 4.0-5.4 Hemoglobin 13.8 g/dL 12.0-16.0 Hematocrit 39 % 35-47 Mean Corpuscular Volume 93 fL 80-97 Mean Corpuscular Hemoglobin 33 pg High 27-31 Mean Corpuscular HGB Conc 35 g/dL 31-36 Red Cell Distribution Width 13 % 10.5-15 Platelet Count 266 10^3/uL 150-450 Mean Platelet Volume 8 um3 7.4-10.4 Abs Neutrophils 2.5 10^3/uL 1.5-7.7 Abs Lymphocytes 2.3 10^3/uL 1.0-4.8 Abs Monocytes 0.8 10^3/uL 0-0.8 Abs Eosinophils 0.3 10^3/uL 0-0.6 Abs Basophils 0.1 10^3/uL 0-0.2 Abs Nucleated RBC 0 10^3/uL Granulocyte % 42.0 % 38-83 Lymphocyte % 37.8 % 25-47 Monocyte % 13.1 % High 1-9 Eosinophil % 5.8 % 0-6 Basophil % 1.3 % 0-2 Nucleated Red Blood Cells % 0 Comp Metabolic Panel 03/04/2013 [facility] Sodium 134 mmol/L 133- 145 [phone] Potassium 3.4 mmol/L Low 3.5-5.0 Chloride 102 mmol/L 101-111 Co2 Carbon Dioxide 27.0 mmol/L 22-32 Anion Gap 5.0 mmol/L 2-11 Glucose 109 mg/dL High 70-100 Blood Urea Nitrogen 19 mg/dL 6-24 Creatinine 0.80 mg/dL 0.50-1.40 BUN/Creatinine Ratio 23.8 High 8-20 Calcium 9.3 mg/dL 8.1-9.9 Total Protein 7.5 g/dL 6.2-8.1 Albumin 4.1 g/dL 3.2-5.2 Globulin 3.4 g/dL 2-4 Albumin/Globulin Ratio 1.2 1-3 Total Bilirubin 0.7 mg/dL 0.4-1.5 Alkaline Phosphatase 60 U/L 30-110 Alt 12 U/L Low 14-54 Ast 21 U/L 12-42 Egfr Non- 70.9 >60 Egfr 91.2 >60 9 Laboratory test 03/04/2013 [facility] Troponin I 0 ng/mL 0-0.06 10 finding [phone] CKMB 03/04/2013 [facility] CKMB ng/mL 0.5 ng/mL 0.3-4.0 11 [phone] Laboratory test 03/04/2013 [facility] Creatine Kinase 76 U/L 0-200 finding [phone] Laboratory test 03/26/2012 In House Hemoglobin A1c 5.2 finding Basic Metabolic 03/21/2012 [facility] Sodium 135 mmol/L 133-145 Panel [phone] Potassium 4.0 mmol/L 3.5-5.0 Chloride 101 mmol/L 101-111 Co2 Carbon Dioxide 28.0 mmol/L 22-32 Anion Gap 6.0 mmol/L 2-11 Glucose 100 mg/dL 70-100 Blood Urea Nitrogen 10 mg/dL 6-24 Creatinine 0.80 mg/dL 0.50-1.40 BUN/Creatinine Ratio 12.5 8-20 Calcium 9.7 mg/dL 8.1-9.9 Egfr Non- 71.1 >60 Egfr 91.5 >60 12 Laboratory test finding 03/21/2012 [facility] Alt 17 U/L 14-51 [phone] Lipid Profile 03/21/2012 [facility] Triglycerides 114 mg/dL 40-200 (Trig/Chol/HDL) [phone] Cholesterol 193 mg/dL Less than 200 HDL Cholesterol 29 mg/dL Low 40-60 13 Cholesterol/HDL Ratio 6.7 AVERAGE High 1-4.44 LDL Cholesterol 141.2 mg/dL High Less Than 100 14 Basic Metabolic Panel 09/14/2011 [facility] Sodium 134 mmol/L Low 135 -145 [phone] Potassium 4.2 mmol/L 3.5-5.0 Chloride 102 mmol/L 101-111 Co2 (Carbon Dioxide) 28.0 mmol/L 22-32 Anion Gap 4.0 mmol/L 2-11 15 Glucose 101 mg/dL High 70-100 BUN 12 mg/dL 6-24 Creatinine 0.9 mg/dL 0.50-1.40 One Over Creatinine 1.11 BUN/Creatinine Ratio 13.3 8-20 Calcium 9.5 mg/dL 8.1-9.9 eGFR Non- 62.1 > 60 eGFR 79.8 > 60 16 Laboratory test finding 03/23/2011 In House Hemoglobin A1c 5.9 Laboratory test finding 03/14/2011 [facility] Alt (SGPT) 16 U/L 14- 54 [phone] Lipid Profile 03/14/2011 [facility] Triglyceride 149 mg/dL 40-200 (Trig/Chol/HDL) [phone] Cholesterol 195 mg/dL Less Than 200 17 High Density Lipoprotein 28 mg/dL Low 40-60 18 Cholesterol/HDL Ratio 6.96 AVERAGE High 1-4.44 Low Density Lipoprotein 137 mg/dL High Less Than 100 19 Laboratory test 03/14/2011 [facility] Vitamin B12 1005 pg/mL High 180 -914 finding [phone] Culture Urine Inhouse 11/30/2010 In House Colonies no growth Urine Micro Inhouse 11/30/2010 In House Ua WBC 8-10 Ua RBC - Ua Casts - Ua Epi 0-1 Ua Other many bacteria Ua Glucose - Ua Bilirubin - Ua Ketones - Ua Specific [place] 1.025 Ua Blood 1+ Ua PH 6.0 Ua Protein tr Ua Urobilinogen - Ua Nitrite + Ua Leukocytes 1+ Urine Micro Inhouse 09/14/2010 In House Ua WBC 0-2 Ua RBC 0-1 Ua Casts - Ua Epi 2-3 Ua Other - Ua Glucose - Ua Bilirubin - Ua Ketones - Ua Specific [place] 1.025 Ua Blood tr Ua PH 5.0 Ua Protein - Ua Urobilinogen - Ua Nitrite - Ua Leukocytes 1+ Laboratory test finding 09/06/2010 [facility] Ferritin 101 NG/ML 11.0-307 [phone] Vitamin B12 156 pg/mL Low 180-028 Folic Acid 4.7 NG/ML 2-16 Iron & Iron Binding 09/06/2010 [facility] Iron Total 85 g/dL 28- 170 Capacity [phone] Unsaturated Iron Binding 210 g/dL Total Iron Binding Capacity 295 g/dL 250-450 % Iron Saturation 29 % 15-55 CBC With Electronic 09/06/2010 [facility] White Blood 4.7 CUMM Low 4.8-10.8 Diff [phone] Count Red Cell Count 4.27 CUMM 4.2-5.4 Hemoglobin 13.0 g/dL 12.0-16.0 Hematocrit 38 % 35-47 Mean Corpuscular Volume 89 um3 79-97 Mean Corpuscular Hemoglob 30 pg 27-31 Mean Corpuscular HGB Cone 34 g/dL 32-36 Redcell Distribution WDTH 14 % 10.5-15 Platelet Count 220 CUMM 150-450 Mean Platelet Volume 8.8 um3 7.4-10.4 Gran % 51.7 % 38-83 Lymph % 32.5 % 25-47 Mononuclear % 13.1 % High 1-9 Eosinophil % 1.9 % 0-6 Basophil % 0.8 % 0-2 Abs Lymphs 1.5 1.0-4.8 Abs Mononuclear 0.6 0-0.8 Absolute Neutrophil Count 2.4 1.5-7.7 Abs Eosinophils 0.1 0-0.6 Abs Basophils 0 0-0.2 Comp Metabolic Panel 09/06/2010 [facility] Sodium 136 mmol/L 135- 145 [phone] Potassium 3.7 mmol/L 3.5-5.0 Chloride 104 mmol/L 101-111 Co2 (Carbon Dioxide) 27.0 mmol/L 22-32 Anion Gap 5.0 mmol/L 2-11 20 Glucose 97 mg/dL 70-100 BUN 17 mg/dL 6-24 Creatinine 0.80 mg/dL 0.50-1.40 One Over Creatinine 1.20 BUN/Creatinine Ratio 21.3 High 8-20 Calcium 9.4 mg/dL 8.1-9.9 Total Protein 6.5 GM/DL 6.2-8.1 Albumin 4.0 GM/DL 3.2-5.2 Globulin 2.5 GM/DL 2-4 Albumin/Globulin Ratio 1.6 1-3 Bilirubin Total 0.9 mg/dL 0.4-1.5 21 Alkaline Phosphatase 51 U/L 30-110 Alt (SGPT) 19 U/L 14-54 Ast (Sgot) 21 U/L 12-42 eGFR Non- 71.3 > 60 eGFR 91.7 > 60 22 Laboratory test 03/10/2010 [facility] Hemoglobin A1c 6.0 % Less Than 23 finding [phone] Lipid Profile 03/10/2010 [facility] Triglyceride 132 mg/dL 40-200 (Trig/Chol/HDL) [phone] Cholesterol 207 mg/dL High Less Than 200 24 High Density Lipoprotein 27 mg/dL Low 40-60 25 Cholesterol/HDL Ratio 7.67 AVERAGE High 1-4.44 Low Density Lipoprotein 154 mg/dL High Less Than 100 26 Laboratory test finding 03/10/2010 [facility] Alt (SGPT) 19 U/L 14- 54 [phone] Basic Metabolic Panel 03/10/2010 [facility] Sodium 136 mmol/L 135- 145 [phone] Potassium 3.7 mmol/L 3.5-5.0 Chloride 103 mmol/L 101-111 Co2 (Carbon Dioxide) 28.0 mmol/L 22-32 Anion Gap 5.0 mmol/L 2-11 27 Glucose 95 mg/dL 70-100 28 BUN 13 mg/dL 6-24 Creatinine 0.70 mg/dL 0.50-1.40 One Over Creatinine 1.40 BUN/Creatinine Ratio 18.6 8-20 Calcium 9.6 mg/dL 8.1-9.9 eGFR Non- 88.7 > 60 eGFR 107.3 > 60 29 Laboratory test 08/31/2009 [facility] Hemoglobin A1c 5.6 % Less Than 6.0 30 finding [phone] Alt (SGPT) 26 U/L 14-54 Lipid Profile 08/31/2009 [facility] Triglyceride 154 mg/dL 40-200 (Trig/Chol/HDL) [phone] Cholesterol 195 mg/dL Less Than 200 31 High Density Lipoprotein 24 mg/dL Low 40-60 32 Cholesterol/HDL Ratio 8.13 AVERAGE High 1-4.44 Low Density Lipoprotein 140 mg/dL High Less Than 100 33 Basic Metabolic Panel 08/31/2009 [facility] Sodium 135 mmol/L 135- 145 [phone] Potassium 3.8 mmol/L 3.5-5.0 Chloride 100 mmol/L Low 101-111 Co2 (Carbon Dioxide) 26.0 mmol/L 22-32 Anion Gap 9.0 mmol/L 2-11 34 Glucose 101 mg/dL High 70-100 35 BUN 14 mg/dL 6-24 Creatinine 0.70 mg/dL 0.50-1.40 One Over Creatinine 1.40 BUN/Creatinine Ratio 20.0 8-20 Calcium 9.8 mg/dL 8.1-9.9 36 eGFR Non- 88.7 > 60 eGFR 107.3 > 60 37 Surgical 07/09/2009 [facility] Surgical <SEE 38 Pathology [phone] Pathology NOTE> Basic 04/12/2009 [facility] Sodium 137 mmol/L 135-1 Metabolic [phone] Panel Potassium 3.4 mmol/L Low 3.5-5.0 Chloride 103 mmol/L 101-111 Co2 (Carbon Dioxide) 29.0 mmol/L 22-32 Anion Gap 5.0 mmol/L 2-11 39 Glucose 113 mg/dL High 70-100 40 BUN 10 mg/dL 6-24 Creatinine 0.77 mg/dL 0.50-1.40 One Over Creatinine 1.20 BUN/Creatinine Ratio 13.0 8-20 Calcium 8.5 mg/dL 8.1-9.9 41 eGFR Non- 79.7 > 60 eGFR 96.5 > 60 42 CBC With Electronic 04/12/2009 [facility] White Blood 6.6 CUMM 4.8- 10.8 43 Diff [phone] Count Red Cell Count 3.47 CUMM Low 4.2-5.4 Hemoglobin 10.4 g/dL Low 12.0-16.0 Hematocrit 31 % Low 35-47 Mean Corpuscular Volume 89 um3 79-97 Mean Corpuscular Hemoglob 30 pg 27-31 Mean Corpuscular HGB Cone 34 g/dL 32-36 Redcell Distribution WDTH 13 % 10.5-15 Platelet Count 196 CUMM 150-450 Mean Platelet Volume 7.7 um3 7.4-10.4 Gran % 64.6 % 38-83 Lymph % 19.9 % Low 25-47 Mononuclear % 11.3 % High 1-9 Eosinophil % 3.4 % 0-6 Basophil % 0.8 % 0-2 Abs Lymphs 1.3 1.0-4.8 Abs Mononuclear 0.7 0-0.8 Absolute Neutrophil Count 4.3 1.5-7.7 Abs Eosinophils 0.2 0-0.6 Abs Basophils 0.1 0-0.2 44 Urinalysis W/Microscopic 04/11/2009 [facility] Ua Color ORANGE [phone] Appearance-Urine TURBID Specific [place]-Ur 1.029 1.010-1.030 Esterase-Urine 1+ Abnormal Negative Nitrite POSITIVE Abnormal Negative [id number] NEGATIVE Negative Protein-Urine 2+ Abnormal Negative PH-Urine 5.5 5-9 Blood-Urine 3+ Abnormal Negative Ketones-Urine TRACE Abnormal Negative Bilirubin-Ur SEE ICTOTEST Abnormal Negative Ictotest-Urine NEGATIVE 45 Glucose-Urine NEGATIVE Negative WBC-Urine 25-30 Abnormal 0-5 RBC-Urine TNTC Abnormal 0-2 Mucus Urine MODERATE Epith Cells-Ur RARE Bacteria-Urine 3+ Amorphous Sed-U 1+ Urine Culture And 04/11/2009 [facility] Urine Culture GRAM NEG 46 Sens [phone] Sensitivi BACILLI Laboratory test 04/10/2009 [facility] Amylase Misc 65 U/L 47 finding [phone] Fluid Laboratory test 04/10/2009 [facility] Amylase Misc 73 U/L 48 finding [phone] Fluid Laboratory test 04/10/2009 [facility] Amylase Misc 71 U/L finding [phone] Fluid Basic Metabolic 04/10/2009 [facility] Sodium 137 mmol/L 135-145 Panel [phone] Potassium 5.0 mmol/L 3.5-5.0 Chloride 104 mmol/L 101-111 Co2 (Carbon Dioxide) 27.0 mmol/L 22-32 Anion Gap 6.0 mmol/L 2-11 49 Glucose 135 mg/dL High 70-100 50 BUN 13 mg/dL 6-24 Creatinine 1.10 mg/dL 0.50-1.40 One Over Creatinine 0.90 BUN/Creatinine Ratio 11.8 8-20 Calcium 8.9 mg/dL 8.1-9.9 51 eGFR Non- 52.8 > 60 eGFR 63.9 > 60 52 CBC With Manual 04/10/2009 [facility] White Blood Count 10.3 CUMM 4.8-10.8 Diff [phone] Red Cell Count 3.93 CUMM Low 4.2-5.4 Hemoglobin 11.7 g/dL Low 12.0-16.0 Hematocrit 35 % 35-47 Mean Corpuscular Volume 90 um3 79-97 Mean Corpuscular Hemoglob 30 pg 27-31 Mean Corpuscular HGB Cone 33 g/dL 32-36 Redcell Distribution WDTH 13 % 10.5-15 Platelet Count 267 CUMM 150-450 Mean Platelet Volume 7.4 um3 7.4-10.4 Polysegmented Neutrophil 78 % 38-83 Band Neutrophil 2 % 0-8 Lymphocyte 10 % Low 25-47 Monocyte 10 % 0-13 Absolute Neutrophil Count 8.2 RBC Morphology NORMAL Laboratory test finding 03/31/2009 [facility] Alt (SGPT) 20 U/L 14- 54 53 [phone] Hemoglobin A1c 5.7 % Less Than 6.0 54 CBC With Electronic 03/31/2009 [facility] White Blood 7.1 CUMM 4.8- 10.8 Diff [phone] Count Red Cell Count 4.42 CUMM 4.2-5.4 Hemoglobin 13.5 g/dL 12.0-16.0 Hematocrit 40 % 35-47 Mean Corpuscular Volume 89 um3 79-97 Mean Corpuscular Hemoglob 31 pg 27-31 Mean Corpuscular HGB Cone 34 g/dL 32-36 Redcell Distribution WDTH 13 % 10.5-15 Platelet Count 311 CUMM 150-450 Mean Platelet Volume 7.5 um3 7.4-10.4 Gran % 61.9 % 38-83 Lymph % 25.8 % 25-47 Mononuclear % 8.9 % 1-9 Eosinophil % 2.6 % 0-6 Basophil % 0.8 % 0-2 Abs Lymphs 1.8 1.0-4.8 Abs Mononuclear 0.6 0-0.8 Absolute Neutrophil Count 4.4 1.5-7.7 Abs Eosinophils 0.2 0-0.6 Abs Basophils 0.1 0-0.2 Basic Metabolic Panel 03/31/2009 [facility] Sodium 138 mmol/L 135- 145 [phone] Potassium 3.7 mmol/L 3.5-5.0 Chloride 104 mmol/L 101-111 Co2 (Carbon Dioxide) 26.0 mmol/L 22-32 Anion Gap 8.0 mmol/L 2-11 55 Glucose 98 mg/dL 70-100 56 BUN 19 mg/dL 6-24 Creatinine 0.90 mg/dL 0.50-1.40 One Over Creatinine 1.10 BUN/Creatinine Ratio 21.1 High 8-20 Calcium 9.5 mg/dL 8.1-9.9 57 eGFR Non- 66.6 > 60 eGFR 80.6 > 60 58 Lipid Profile 03/31/2009 [facility] Triglyceride 123 mg/dL 40-200 (Trig/Chol/HDL) [phone] Cholesterol 251 mg/dL High Less Than 200 59 High Density Lipoprotein 27 mg/dL Low 40-60 60 Cholesterol/HDL Ratio 9.30 AVERAGE High 1-4.44 Low Density Lipoprotein 199 mg/dL High Less Than 100 61 Surgical 03/17/2009 [facility] Surgical 62 Pathology [phone] Pathology <SEE NOTE> Xray 11/11/2008 [facility] Knee, 3 Views, Advanced OA L knee 63 LT Xray 03/12/[address] [facility] [address], Abdomen, Intrathoracic [address] [place] [address] Material [phone] Laboratory 03/03/2008 [facility] Alt (SGPT) 18 U/L 14- test finding [phone] Lipid Profile 03/03/2008 [facility] Triglyceride 167 mg/dL 40- (Trig/Chol/HDL [phone] 200 ) Cholesterol 210 mg/dL High Less Than 200 64 High Density Lipoprotein 27 mg/dL Low 40-60 65 Cholesterol/HDL Ratio 7.78 AVERAGE High 1-4.44 Low Density Lipoprotein 150 mg/dL High Less Than 100 66 Basic Metabolic Panel 03/03/2008 [facility] Sodium 137 mmol/L 135- 145 [phone] Potassium 3.9 mmol/L 3.5-5.0 Chloride 103 mmol/L 101-111 Co2 (Carbon Dioxide) 28.0 mmol/L 22-32 Anion Gap 6.0 mmol/L 2-11 67 Glucose 97 mg/dL 70-100 68 BUN 21 mg/dL 6-24 Creatinine 0.78 mg/dL 0.50-1.40 One Over Creatinine 1.20 BUN/Creatinine Ratio 26.9 High 8-20 Calcium 9.4 mg/dL 8.1-9.9 69 Laboratory test finding 01/31/2008 In House Culture Throat Rapid Screen neg Culture Throat neg Urine Micro Inhouse 05/09/2007 In House Urine Microscopic Inhouse - Ua Inhouse 05/09/2007 In House Ua Glucose - Ua Bilirubin - Ua Ketones - Ua Specific [place] 1.030 Ua Blood - Ua PH 6.0 Ua Protein tr Ua Urobilinogen - Ua Nitrite - Ua Leukocytes - Basic Metabolic Panel 04/24/2007 [facility] One Over Creatinine 1.11 [phone] Anion Gap 6.0 mmol/L 2-11 70 BUN 22 mg/dL 6-24 Calcium 9.8 mg/dL 8.7-10.2 Chloride 103 mmol/L 101-111 Co2 (Carbon Dioxide) 29.0 mmol/L 22-32 Glucose 96 mg/dL 70-105 Potassium 4.3 mmol/L 3.5-5.0 Sodium 138 mmol/L 135-145 BUN/Creatinine Ratio 24.4 High 8-20 Creatinine 0.9 mg/dL 0.5-1.4 Laboratory test 04/24/2007 [facility] Alt (SGPT) 17 U/L 14-54 finding [phone] Lipid Profile 04/24/2007 [facility] Cholesterol/HD 6.42 AVERAGE High 1-4.44 (Trig/Chol/HDL) [phone] L Ratio Cholesterol 167 mg/dL Less Than 200 71 Triglyceride 129 mg/dL 40-200 High Density Lipoprotein 26 mg/dL Low 40-60 72 Low Density Lipoprotein 115 mg/dL High Less Than 100 73 Basic Metabolic Panel 06/23/2006 [facility] Over Creatinine 1.25 [phone] Anion Gap 9.0 mmol/L 2-11 74 BUN 17 mg/dL 6-24 Calcium 9.4 mg/dL 8.7-10.2 Chloride 100 mmol/L Low 101-111 Co2 (Carbon Dioxide) 26.0 mmol/L 22-32 Glucose 102 mg/dL 70-105 Potassium 4.0 mmol/L 3.5-5.0 Sodium 135 mmol/L 135-145 BUN/Creatinine Ratio 21.3 High 8-20 Creatinine 0.8 mg/dL 0.5-1.4 Lipid Profile 06/23/2006 [facility] Cholesterol/HDL 5.54 High 1-4.44 (Trig/Chol/HDL) [phone] Ratio AVERAGE Cholesterol 144 mg/dL Less Than 200 75 Triglyceride 90 mg/dL 40-200 High Density Lipoprotein 26 mg/dL Low 40-60 76 Low Density Lipoprotein 100 mg/dL Less Than 100 77 Surgical 03/14/2006 [facility] Surgical 78 Pathology [phone] Pathology <SEE NOTE> Lipid 03/28/2005 [facility] Cholesterol 164 mg/dL Less 79, Profile [phone] Than 80 (Trig/Chol/H 200 DL) Triglyceride 99 mg/dL 40-200 High Density Lipoprotein 32 mg/dL Low 40-60 81 Low Density Lipoprotein 112 mg/dL High Less Than 100 82 Cholesterol/HDL Ratio 5.13 AVERAGE High 1-4.44 Laboratory test 03/28/2005 [facility] Alt (SGPT) 27 U/L 14-54 finding [phone] Basic Metabolic Panel 03/28/2005 [facility] One Over Creatinine 1.11 [phone] Anion Gap 7.0 mmol/L 2-11 83 BUN 15 mg/dL 6-24 Calcium 9.8 mg/dL 8.7-10.2 Chloride 103 mmol/L 101-111 Co2 (Carbon Dioxide) 28.0 mmol/L 22-32 Glucose 103 mg/dL 70-105 Potassium 4.0 mmol/L 3.5-5.0 Sodium 138 mmol/L 135-145 BUN/Creatinine Ratio 16.7 8-20 Creatinine 0.9 mg/dL 0.5-1.4 1 void, clear, tea colored, took Pyridium 2 Because ethnic data is not always readily available, this report includes an eGFR for both -Americans and non- Americans. The National Kidney Disease Education Program (NKDEP) does not endorse the use of the MDRD equation for patients that are not between the ages of 18 and 70, are , have extremes of body size, muscle mass, or nutritional status, or are non- or non-. According to the National Kidney Foundation, irrespective of diagnosis, the stage of the disease is based on the level of kidney function: Stage Description GFR(mL/min/1.73 m(2)) 1 Kidney damage with normal or decreased GFR 90 2 Kidney damage with mild decrease in GFR 60-89 3 Moderate decrease in GFR 30-59 4 Severe decrease in GFR 15-29 5 Kidney failure <15 (or dialysis) 3 void, clear, dark yellow 4 Because ethnic data is not always readily available, this report includes an eGFR for both -Americans and non- Americans. The National Kidney Disease Education Program (NKDEP) does not endorse the use of the MDRD equation for patients that are not between the ages of 18 and 70, are , have extremes of body size, muscle mass, or nutritional status, or are non- or non-. According to the National Kidney Foundation, irrespective of diagnosis, the stage of the disease is based on the level of kidney function: Stage Description GFR(mL/min/1.73 m(2)) 1 Kidney damage with normal or decreased GFR 90 2 Kidney damage with mild decrease in GFR 60-89 3 Moderate decrease in GFR 30-59 4 Severe decrease in GFR 15-29 5 Kidney failure <15 (or dialysis) 5 Because ethnic data is not always readily available, this report includes an eGFR for both -Americans and non- Americans. The National Kidney Disease Education Program (NKDEP) does not endorse the use of the MDRD equation for patients that are not between the ages of 18 and 70, are , have extremes of body size, muscle mass, or nutritional status, or are non- or non-. According to the National Kidney Foundation, irrespective of diagnosis, the stage of the disease is based on the level of kidney function: Stage Description GFR(mL/min/1.73 m(2)) 1 Kidney damage with normal or decreased GFR 90 2 Kidney damage with mild decrease in GFR 60-89 3 Moderate decrease in GFR 30-59 4 Severe decrease in GFR 15-29 5 Kidney failure <15 (or dialysis) 6 SEE RESULT BELOW Name: SANTIAGO ISIDRO : [address]: Fabiola Greene Acct: [id number] Unit: [id number] AGE: 74 Location: [facility] Re02/28/15 SEX: F Status: DEP ER SPEC: [id number] EVER: 02/28/[address]: Racquel Lee NP REQ: [id number] RECD: 03/01/15 STATUS: JAMEE CASILLAS DR: Valeriy Brooks DO _ SOURCE: URINE SPDESC: ORDERED: Urine Culture Procedure Result Verified Site Urine Culture Final 03/03/15847 ML Organism 1 NORMAL PERRY Cat[place] Count 10-25,000 (Moderate) CFU/ML * ML - MAIN LAB ([facility]) . END OF REPORT * ML=Testing performed at Main Lab DEPARTMENT OF PATHOLOGY, [address] [place] [address] Rodolfo Angela M.D. Director [facility] # [id number] 7 AM 8.7-22.4 PM <10 8 Because ethnic data is not always readily available, this report includes an eGFR for both -Americans and non- Americans. The National Kidney Disease Education Program (NKDEP) does not endorse the use of the MDRD equation for patients that are not between the ages of 18 and 70, are , have extremes of body size, muscle mass, or nutritional status, or are non- or non-. According to the National Kidney Foundation, irrespective of diagnosis, the stage of the disease is based on the level of kidney function: Stage Description GFR(mL/min/1.73 m(2)) 1 Kidney damage with normal or decreased GFR 90 2 Kidney damage with mild decrease in GFR 60-89 3 Moderate decrease in GFR 30-59 4 Severe decrease in GFR 15-29 5 Kidney failure <15 (or dialysis) 9 Because ethnic data is not always readily available, this report includes an eGFR for both -Americans and non- Americans. The National Kidney Disease Education Program (NKDEP) does not endorse the use of the MDRD equation for patients that are not between the ages of 18 and 70, are , have extremes of body size, muscle mass, or nutritional status, or are non- or non-. According to the National Kidney Foundation, irrespective of diagnosis, the stage of the disease is based on the level of kidney function: Stage Description GFR(mL/min/1.73 m(2)) 1 Kidney damage with normal or decreased GFR 90 2 Kidney damage with mild decrease in GFR 60-89 3 Moderate decrease in GFR 30-59 4 Severe decrease in GFR 15-29 5 Kidney failure <15 (or dialysis) 10 Reference Range and Interpretation: TnI (ng/mL) Interpretation Less Than 0.06 ng/mL Not supportive of diagnosis of [place] 0.06 - 0.50 ng/mL Indeterminate: suggest serial studies if clinically indicated. Greater than 0.5 ng/mL Consistent with diagnosis of OH 11 CKMB interpretation should be made in conjunction with clinical symptoms, patient history and EKG changes. 12 Because ethnic data is not always readily available, this report includes an eGFR for both -Americans and non- Americans. The National Kidney Disease Education Program (NKDEP) does not endorse the use of the MDRD equation for patients that are not between the ages of 18 and 70, are , have extremes of body size, muscle mass, or nutritional status, or are non- or non-. According to the National Kidney Foundation, irrespective of diagnosis, the stage of the disease is based on the level of kidney function: Stage Description GFR(mL/min/1.73 m(2)) 1 Kidney damage with normal or decreased GFR 90 2 Kidney damage with mild decrease in GFR 60-89 3 Moderate decrease in GFR 30-59 4 Severe decrease in GFR 15-29 5 Kidney failure <15 (or dialysis) 13 HDL Interpretation: Undesirable: High Risk: Less than 40 MG/DL Desirable: Low Risk: Greater than 60 MG/DL 14 LDL Interpretation: Low Risk Optimal Level: LDL Less than 100 MG/DL Near or Above Optimal: LDL 100-129 MG/DL Borderline High Risk: LDL 130-159 MG/DL High Risk: LDL 160-189 MG/DL Very High Risk: LDL Greater than 189 MG/DL 15 Anion gap measurement may be of limited value in the presence of any alkalosis, especially in a combined acid base disorder. . 16 Because ethnic data is not always readily available, this report includes an eGFR for both -Americans and non- Americans. The National Kidney Disease Education Program (NKDEP) does not endorse the use of the MDRD equation for patients that are not between the ages of 18 and 70, are , have extremes of body size, muscle mass, or nutritional status, or are non- or non-. According to the National Kidney Foundation, irrespective of diagnosis, the stage of the disease is based on the level of kidney function: Stage Description GFR(mL/min/1.73 m(2)) 1 Kidney damage with normal or decreased GFR 90 2 Kidney damage with mild decrease in GFR 60-89 3 Moderate decrease in GFR 30-59 4 Severe decrease in GFR 15-29 5 Kidney failure <15 (or dialysis) 17 CHOLESTEROL INTERPRETATION: Desirable: Less than 200 MG/DL Borderline-High Risk: 200-239 MG/DL High-Risk: 240 MG/DL and over 18 HDL INTERPRETATION: Undesirable: High Risk: Less than 40 MG/DL Desirable: Low Risk: Greater than 60 MG/DL 19 LDL INTERPRETATION: Low Risk Optimal Level: LDL Less than 100 MG/DL Near or Above Optimal: LDL 100-129 MG/DL Borderline High Risk: LDL 130-159 MG/DL High Risk: LDL 160-189 MG/DL Very High Risk: LDL Greater than 189 MG/DL 20 Anion gap measurement may be of limited value in the presence of any alkalosis, especially in a combined acid base disorder. . 21 A metabolite of Naproxen, O-desmethylnaproxen, has been shown to interfere with the Jendrassik-Deshaun method for measuring total bilirubin. Samples from patients who have taken Naproxen have shown spurious elevation in total bilirubin levels. 22 Because ethnic data is not always readily available, this report includes an eGFR for both -Americans and non- Americans. The National Kidney Disease Education Program (NKDEP) does not endorse the use of the MDRD equation for patients that are not between the ages of 18 and 70, are , have extremes of body size, muscle mass, or nutritional status, or are non- or non-. According to the National Kidney Foundation, irrespective of diagnosis, the stage of the disease is based on the level of kidney function: Stage Description GFR(mL/min/1.73 m(2)) 1 Kidney damage with normal or decreased GFR 90 2 Kidney damage with mild decrease in GFR 60-89 3 Moderate decrease in GFR 30-59 4 Severe decrease in GFR 15-29 5 Kidney failure <15 (or dialysis) 23 THERAPEUTIC TARGET FOR THE TREATMENT OF DIABETES MELLITUS PATIENTS IS <7% HBA1C, AND IN SELECTIVE PATIENTS <6.0%. PLEASE REFER TO [place] [employer] DIABETIC CARE GUIDELINES FOR FURTHER INFORMATION. 24 CHOLESTEROL INTERPRETATION: Desirable: Less than 200 MG/DL Borderline-High Risk: 200-239 MG/DL High-Risk: 240 MG/DL and over 25 HDL INTERPRETATION: Undesirable: High Risk: Less than 40 MG/DL Desirable: Low Risk: Greater than 60 MG/DL 26 LDL INTERPRETATION: Low Risk Optimal Level: LDL Less than 100 MG/DL Near or Above Optimal: LDL 100-129 MG/DL Borderline High Risk: LDL 130-159 MG/DL High Risk: LDL 160-189 MG/DL Very High Risk: LDL Greater than 189 MG/DL 27 Anion gap measurement may be of limited value in the presence of any alkalosis, especially in a combined acid base disorder. . 28 Note change in reference range as of 12/27/07. The change was based on recommendations from the [place] [employer]. 29 Because ethnic data is not always readily available, this report includes an eGFR for both -Americans and non- Americans. The National Kidney Disease Education Program (NKDEP) does not endorse the use of the MDRD equation for patients that are not between the ages of 18 and 70, are , have extremes of body size, muscle mass, or nutritional status, or are non- or non-. According to the National Kidney Foundation, irrespective of diagnosis, the stage of the disease is based on the level of kidney function: Stage Description GFR(mL/min/1.73 m(2)) 1 Kidney damage with normal or decreased GFR 90 2 Kidney damage with mild decrease in GFR 60-89 3 Moderate decrease in GFR 30-59 4 Severe decrease in GFR 15-29 5 Kidney failure <15 (or dialysis) 30 THERAPEUTIC TARGET FOR THE TREATMENT OF DIABETES MELLITUS PATIENTS IS <7% HBA1C, AND IN SELECTIVE PATIENTS <6.0%. PLEASE REFER TO [employer] DIABETIC CARE GUIDELINES FOR FURTHER INFORMATION. 31 CHOLESTEROL INTERPRETATION: Desirable: Less than 200 MG/DL Borderline-High Risk: 200-239 MG/DL High-Risk: 240 MG/DL and over 32 HDL INTERPRETATION: Undesirable: High Risk: Less than 40 MG/DL Desirable: Low Risk: Greater than 60 MG/DL 33 LDL INTERPRETATION: Low Risk Optimal Level: LDL Less than 100 MG/DL Near or Above Optimal: LDL 100-129 MG/DL Borderline High Risk: LDL 130-159 MG/DL High Risk: LDL 160-189 MG/DL Very High Risk: LDL Greater than 189 MG/DL 34 Anion gap measurement may be of limited value in the presence of any alkalosis, especially in a combined acid base disorder. . 35 Note change in reference range as of 12/27/07. The change was based on recommendations from the [place] [employer]. 36 Please note change in reference range effective 07 . 37 Because ethnic data is not always readily available, this report includes an eGFR for both -Americans and non- Americans. The National Kidney Disease Education Program (NKDEP) does not endorse the use of the MDRD equation for patients that are not between the ages of 18 and 70, are , have extremes of body size, muscle mass, or nutritional status, or are non- or non-. According to the National Kidney Foundation, irrespective of diagnosis, the stage of the disease is based on the level of kidney function: Stage Description GFR(mL/min/1.73 m(2)) 1 Kidney damage with normal or decreased GFR 90 2 Kidney damage with mild decrease in GFR 60-89 3 Moderate decrease in GFR 30-59 4 Severe decrease in GFR 15-29 5 Kidney failure <15 (or dialysis) 38 ---- RUN DATE: 07/10/09 [facility] NMI LIVE PAGE 1 RUN TIME: 1544 Specimen Inquiry RUN USER: INTERFACE -- Name: SANTIAGO ISIDRO#: [id number] Status: REG REF Re07/09/09 Age/Sex: 68/F Unit#: [id number] Location: [facility] : 42 -- Specimen: [id number] Spec Date: 07/09/[address]: Yuriy vargas MD Spec Type: SURGICAL P Received: 07/09/09-1252 Copies to: Ghulam Steel MD SPECIMEN GASTROESOPHAGEAL JUNCTION BIOPSY HISTORY CLINICAL INFORMATION: Gastroesophageal reflux disease GROSS DESCRIPTION The specimen is received in formalin labelled Santiago Isidro, GE Junction Biopsy, and consists of two fragments of davis-blake tissue each measuring 0.3 x 0.3 x 0.2 cm. Submitted entirely, one cassette. DIAGNOSIS GE junction, biopsy: A. Cardia type mucosa only with reactive changes and increased inflammatory cells including eosinophils within the lamina propria. B. No evidence of acute gastritis. C. Intestinal metaplasia is not seen. Signed Electronically by: DAVEY MARIA 07/10/09 1544 -- -- DEPARTMENT OF PATHOLOGY, [address] [place] [address] [facility] Permit #[id number] Rodolfo Angela M.D. Director Davey Maria M.D. Director Of Acquisition Marketing Dir sudeep -- 39 Anion gap measurement may be of limited value in the presence of any alkalosis, especially in a combined acid base disorder. . 40 Note change in reference range as of 12/27/07. The change was based on recommendations from the [place] [employer]. 41 Please note change in reference range effective 07 . 42 Because ethnic data is not always readily available, this report includes an eGFR for both -Americans and non- Americans. The National Kidney Disease Education Program (NKDEP) does not endorse the use of the MDRD equation for patients that are not between the ages of 18 and 70, are , have extremes of body size, muscle mass, or nutritional status, or are non- or non-. According to the National Kidney Foundation, irrespective of diagnosis, the stage of the disease is based on the level of kidney function: Stage Description GFR(mL/min/1.73 m(2)) 1 Kidney damage with normal or decreased GFR 90 2 Kidney damage with mild decrease in GFR 60-89 3 Moderate decrease in GFR 30-59 4 Severe decrease in GFR 15-29 5 Kidney failure <15 (or dialysis) 43 COMMENTS: PT IS ON HEPARIN SQ Q8 HRS 44 Lymphopenia % 45 ICTOTEST IS A QUALITATIVE CONFIRMATORY TEST FOR BILIRUBIN. 46 >100^>100,000 ORGANISMS/ML (MANY)^CCU 47 CUP A 48 CUP B 49 Anion gap measurement may be of limited value in the presence of any alkalosis, especially in a combined acid base disorder. . 50 Note change in reference range as of 12/27/07. The change was based on recommendations from the [place] [employer]. 51 Please note change in reference range effective 07 . 52 Because ethnic data is not always readily available, this report includes an eGFR for both -Americans and non- Americans. The National Kidney Disease Education Program (NKDEP) does not endorse the use of the MDRD equation for patients that are not between the ages of 18 and 70, are , have extremes of body size, muscle mass, or nutritional status, or are non- or non-. According to the National Kidney Foundation, irrespective of diagnosis, the stage of the disease is based on the level of kidney function: Stage Description GFR(mL/min/1.73 m(2)) 1 Kidney damage with normal or decreased GFR 90 2 Kidney damage with mild decrease in GFR 60-89 3 Moderate decrease in GFR 30-59 4 Severe decrease in GFR 15-29 5 Kidney failure <15 (or dialysis) 53 SDS 04/09 54 THERAPEUTIC TARGET FOR THE TREATMENT OF DIABETES MELLITUS PATIENTS IS <7% HBA1C, AND IN SELECTIVE PATIENTS <6.0%. PLEASE REFER TO [place] [employer] DIABETIC CARE GUIDELINES FOR FURTHER INFORMATION. 55 Anion gap measurement may be of limited value in the presence of any alkalosis, especially in a combined acid base disorder. . 56 Note change in reference range as of 12/27/07. The change was based on recommendations from the [place] [employer]. 57 Please note change in reference range effective 07 . 58 Because ethnic data is not always readily available, this report includes an eGFR for both -Americans and non- Americans. The National Kidney Disease Education Program (NKDEP) does not endorse the use of the MDRD equation for patients that are not between the ages of 18 and 70, are , have extremes of body size, muscle mass, or nutritional status, or are non- or non-. According to the National Kidney Foundation, irrespective of diagnosis, the stage of the disease is based on the level of kidney function: Stage Description GFR(mL/min/1.73 m(2)) 1 Kidney damage with normal or decreased GFR 90 2 Kidney damage with mild decrease in GFR 60-89 3 Moderate decrease in GFR 30-59 4 Severe decrease in GFR 15-29 5 Kidney failure <15 (or dialysis) 59 CHOLESTEROL INTERPRETATION: Desirable: Less than 200 MG/DL Borderline-High Risk: 200-239 MG/DL High-Risk: 240 MG/DL and over 60 HDL INTERPRETATION: Undesirable: High Risk: Less than 40 MG/DL Desirable: Low Risk: Greater than 60 MG/DL 61 LDL INTERPRETATION: Low Risk Optimal Level: LDL Less than 100 MG/DL Near or Above Optimal: LDL 100-129 MG/DL Borderline High Risk: LDL 130-159 MG/DL High Risk: LDL 160-189 MG/DL Very High Risk: LDL Greater than 189 MG/DL 62 ---- RUN DATE: 03/19/09 [facility] NMI LIVE PAGE 1 RUN TIME: 1435 Specimen Inquiry RUN USER: INTERFACE -- [id number] Status: REG REF Re03/17/09 Age/Sex: 68/F Unit#: [id number] Location: [address] [place] [address]. : 42 -- Specimen: [id number] SOUT Spec Date: 03/17/[address]: Yuriy vargas MD Spec Type: SURGICAL P Received: 03/18/09 Copies to: Ghulam Steel MD SPECIMEN BIOPSY ESOPHAGOGASTRIC JUNCTION HISTORY CLINICAL INFORMATION: Hiatal hernia repair; gastroesophageal reflux disea se GROSS DESCRIPTION The specimen is received in formalin labelled Santiago Isidro, Biopsy EG Junction, and consists of davis, soft tissue fragments measuring 0.2 x 0.2 x 0.1 cm. Submitted entirely, one cassette. DIAGNOSIS Gastroesophageal junction, biopsy: A. Mild reflux esophagitis. B. Gastric cardia type mucosa with focal acute inflammation and reactive epithelial changes. C. No goblet cell metaplasia or dysplasia identified. Signed Electronically by: RODOLFO ANGELA MD 03/19/09 1434 -- -- DEPARTMENT OF PATHOLOGY, [address] [place] [address] [facility] Permit #[id number] Rodolfo Angela M.D. Director Davey Maria M.D. Director Of Acquisition Marketing Dir sheets -- 63 Advanced OA most pronounced in medial and PF compartments. 64 CHOLESTEROL INTERPRETATION: Desirable: Less than 200 MG/DL Borderline-High Risk: 200-239 MG/DL High-Risk: 240 MG/DL and over 65 HDL INTERPRETATION: Undesirable: High Risk: Less than 40 MG/DL Desirable: Low Risk: Greater than 60 MG/DL 66 LDL INTERPRETATION: Low Risk Optimal Level: LDL Less than 100 MG/DL Near or Above Optimal: LDL 100-129 MG/DL Borderline High Risk: LDL 130-159 MG/DL High Risk: LDL 160-189 MG/DL Very High Risk: LDL Greater than 189 MG/DL 67 Anion gap measurement may be of limited value in the presence of any alkalosis, especially in a combined acid base disorder. . 68 Note change in reference range as of 12/27/07. The change was based on recommendations from the [place] [employer]. 69 Please note change in reference range effective 07 . 70 Anion gap measurement may be of limited value in the presence of any alkalosis, especially in a combined acid base disorder. . 71 Classification: Desirable . 72 Classification: Low . 73 CALCULATED LDL APPROXIMATES THE VALUE OF A DIRECT LDL MEASUREMENT. Classification: Near or above optimal . 74 Anion gap measurement may be of limited value in the presence of any alkalosis, especially in a combined acid base disorder. . 75 Classification: Desirable . 76 Classification: Low . 77 CALCULATED LDL APPROXIMATES THE VALUE OF A DIRECT LDL MEASUREMENT. Classification: Near or above optimal . 78 ---- RUN DATE: 03/16/06 [facility] LIVE PAGE 1 RUN TIME: 1446 Specimen Inquiry RUN USER: INTERFACE [id number] SANTIAGO ISIDRO 65/F <REG REF 03/14> ([id number]) 2EIFRAH Hanson MD., Joana Barker -- Specimen: [id number] SOUT Spec Date: 03/14/[address]: Yuriy vargas MD. Spec Type: SURGICAL P Received: 03/15/0622 Copies to: Valeriy Steel MD. SPECIMEN COLON BIOPSY AT 60 CM. HISTORY CLINICAL INFORMATION: Screening colonoscopy. GROSS DESCRIPTION The specimen is received in formalin labelled "Santiago Isidro, Biopsy at 60 cm." and consists of a floating davis soft tissue fragment measuring 0.3 x 0.2 x 0.2 cm. Submitted entirely in one cassette. DIAGNOSIS Colon, biopsy at 60 cm., biopsy - Hyperplastic change. Signed Electronically signed RODOLFO ANGELA MD 03/16/06 -- -- DEPARTMENT OF PATHOLOGY, [address] [place] [address] [facility] Permit #[id number] Immanuel Drummond II, M.D. Director Rodolfo Angela M.D. Director Of Acquisition Marketing Ramona irector -- 79 FASTING 80 Classification: Desirable . 81 Classification: Low . 82 CALCULATED LDL APPROXIMATES THE VALUE OF A DIRECT LDL MEASUREMENT. Classification: Near or above optimal . 83 Anion gap measurement may be of limited value in the presence of any alkalosis, especially in a combined acid base disorder. . Procedures Date Code Description Status 09/26/2017 82463 Brief Emotional/Behav Assessment W/ Scoring Doc Per Completed Standard Inst 04/07/2017 02196775 Mammogram Completed 03/29/2017 55971 Electrocardiogram Complete Completed 09/27/2016 18553 Dexa Bone Density Study One Or More Sites Axial Completed Skeleton 03/30/2016 13283 Electrocardiogram Complete Completed 10/16/2015 80805 X-Ray Knee, Complete Completed 10/16/201515714 Inject/Drain Joint/Bursa Major Completed 03/30/2015 47867 Electrocardiogram Complete Completed 04/01/2014 78530 Electrocardiogram Complete Completed 03/29/2013 52751 Dexa Bone Density Study One Or More Sites Axial Completed Skeleton 02/27/2013 47206 Electrocardiogram Complete Completed 11/23/2012 60900 Osteopathic Manipulative Treatment 1 Or 2 Body Region Completed 09/24/2012 41467 Electrocardiogram Complete Completed 09/21/2011 81228 Electrocardiogram Complete Completed 10/05/2010 96205 SC/Im Injections Completed 09/28/2010 49205 SC/Im Injections Completed 09/21/2010 12746 SC/Im Injections Completed 09/14/2010 73113 SC/Im Injections Completed 09/14/2010 95708 Electrocardiogram Complete Completed 08/10/2010 43132 I & D Abscess Simple Completed 12/12/200824045 Inject/Drain Joint/Bursa Major Completed 11/11/2008 75392 X-Ray Knee,Ap&Lateral Oblique Views Completed 09/09/2008 76802 Electrocardiogram Complete Completed 05/09/2007 67179 Electrocardiogram Complete Completed 03/08/2006 97917233 Colonoscopy Completed 08/03/2005 67331 X-Ray Chest Two Views Completed 02/02/2005 45959 Electrocardiogram Complete Completed 02/02/2005 06922 X-Ray Chest Two Views Completed Encounters Type Date Location Provider Dx Diagnosis Office Visit 04/14/2018 Main Office Valeriy Steel, R73.01 Impaired fasting 9:30a M.D. glucose I10 Essential (primary) hypertension K21.9 Gastro-esophageal reflux disease without esophagitis R13.14 Dysphagia, pharyngoesophageal phase M54.5 Low back pain Z12.31 Encntr screen mammogram for malignant neoplasm of breast Office Visit 12/22/2017 3:00p Main Office Valeiry Steel, K43.9 Ventral hernia M.D. without obstruction or gangrene M62.08 Separation of muscle (nontraumatic), other site Office Visit 09/26/2017 10:00a Main Office Valeriy Steel, Z12.31 Encntr screen M.D. mammogram for malignant neoplasm of breast Z23 Encounter for immunization I10 Essential (primary) hypertension R73.01 Impaired fasting glucose M81.0 Age-related osteoporosis w/o current pathological fracture K21.9 Gastro-esophageal reflux disease without esophagitis R13.14 Dysphagia, pharyngoesophageal phase R68.81 Early satiety Z13.89 Encounter for screening for other disorder Office Visit 03/29/2017 10:15a Main Office Valeriy Steel, I10 Essential (primary) M.D. hypertension R73.01 Impaired fasting glucose M81.0 Age-related osteoporosis w/o current pathological fracture N39.0 Urinary tract infection, site not specified Z12.31 Encntr screen mammogram for malignant neoplasm of breast L82.1 Other seborrheic keratosis Z71.89 Other specified counseling K21.9 Gastro-esophageal reflux disease without esophagitis R13.14 Dysphagia, pharyngoesophageal phase R68.81 Early satiety Office Visit 09/27/2016 10:00a Main Office Hussein Steel1.Hina GastroEvonne esophageal Ayaan Crooks reflux disease without esophagitis R13.14 Dysphagia, pharyngoesophageal phase R68.81 Early satiety I10 Essential (primary) hypertension M81.0 Age-related osteoporosis w/o current pathological fracture Office Visit 07/26/2016 1:45p Main Office Zbigniew Kellogg, J20.9 Acute bronchitis, D.O. unspecified J01.00 Acute maxillary sinusitis, unspecified R05 Cough Office Visit 03/30/2016 12:55p Main Office Valeriy Steel, I10 Essential (primary) M.D. hypertension R73.01 Impaired fasting glucose K21.9 Gastro-esophageal reflux disease without esophagitis R68.81 Early satiety R13.14 Dysphagia, pharyngoesophageal phase Z12.11 Encounter for screening for malignant neoplasm of colon M17.12 Unilateral primary osteoarthritis, left knee M81.0 Age-related osteoporosis w/o current pathological fracture Office Visit 10/16/2015 1:45p Main Office Valeriy Steel, M25.562 Pain in left M.D. knee M17.12 Unilateral primary osteoarthritis, left knee Office Visit 09/28/2015 12:55p Main Office Damián K21.9 Gastro- esophageal Ayaan Crooks reflux disease without esophagitis R68.81 Early satiety R13.14 Dysphagia, pharyngoesophageal phase I10 Essential (primary) hypertension H40.11x1 Primary open-angle glaucoma, mild stage M81.0 Age-related osteoporosis w/o current pathological fracture Z12.31 Encntr screen mammogram for malignant neoplasm of breast Office Visit 03/30/2015 11:30a Main Office Valeriy Steel, I10 Essential (primary) M.D. hypertension R73.01 Impaired fasting glucose M81.0 Age-related osteoporosis w/o current pathological fracture K21.9 Gastro-esophageal reflux disease without esophagitis M54.5 Low back pain R00.2 Palpitations Z23 Encounter for immunization Z41.8 Encntr for oth proc [facility] Office Visit 03/04/2015 11:30a Main Office Valeriy Steel M.D. M54.5 Low back pain N39.0 Urinary tract infection, site not specified Office Visit 11/19/2014 4:40p Main Office Jeanine, 465.9 URI [place], RPA-C Respiratory Infections Acute Unspec Sites Office Visit 09/30/2014 2:45p Main Office Valeriy Steel, 401.1 Hypertension Benign M.D. 790.21 Impaired Fasting Glucose 733.00 Osteoporosis Unspec 530.81 Esophageal Reflux Office Visit 04/01/2014 11:00a Main Office Valeriy Steel, 401.1 Hypertension Benign M.D. 790.21 Impaired Fasting Glucose 733.00 Osteoporosis Unspec V76.12 Screening Mammogram Malig Vinay Other Office Visit 09/27/2013 12:55p Main Office Valeriy Steel, 401.1 Hypertension Benign M.D. 530.81 Esophageal Reflux 733.00 Osteoporosis Unspec V76.51 Special Screening For Malignant Neoplasms Colon Office Visit 03/29/2013 2:30p Main Office Valeriy Steel, V82.81 Special Screening M.D. For Osteoporosis 790.21 Impaired Fasting Glucose 401.1 Hypertension Benign 530.81 Esophageal Reflux 733.00 Osteoporosis Unspec V76.10 Screening For Malignant Neoplasm Breast 719.46 Pain Joint Lower Leg 715.16 Osteoarthrosis Localized Prim Lower Leg Office Visit 02/27/2013 11:30a Main Office Valeriy Steel, 786.50 Pain Chest Unspec M.D. Office Visit 11/23/2012 10:00a Main Office Zbigniew Kellogg, 724.5 Backache Unspec D.O. 729.1 Myalgia & Myositis Unspec 739.6 Lesion Nonallopathic Lower Extremity Not Elsewhere Class 739.3 Lesion Nonallopathic Lumbar Region Not Elsewhere Class 728.85 Spasm Muscle Office Visit 09/24/2012 12:55p Main Office Valeriy Steel, 790.21 Impaired Fasting M.D. Glucose 401.1 Hypertension Benign 702.11 Seborrheic Keratosis Inflamed 272.8 Lipoid Metabolism Disorders Other 281.1 Vitamin B12 Deficiency Anemia Other 530.81 Esophageal Reflux 715.26 Osteoarthrosis Localized 2Ndy Lower Leg 733.90 Bone & Cartilage Disorder Unspec Office Visit 03/26/2012 10:45a Main Office Valeriy Steel, 790.21 Impaired Fasting M.D. Glucose 401.1 Hypertension Benign 272.8 Lipoid Metabolism Disorders Other V76.10 Screening For Malignant Neoplasm Breast 719.46 Pain Joint Lower Leg 726.60 Enthesopathy Of Knee, Unspecified Office Visit 09/21/2011 10:15a Main Office Valeriy Steel, 401.1 Hypertension Benign M.D. 272.8 Lipoid Metabolism Disorders Other 790.21 Impaired Fasting Glucose V12.72 History Personal Colonic Polyps V76.51 Special Screening For Malignant Neoplasms Colon Office Visit 03/23/2011 10:15a Main Office Valeriy Steel, 272.8 Lipoid Metabolism M.D. Disorders Other 401.1 Hypertension Benign 281.1 Vitamin B12 Deficiency Anemia Other 790.21 Impaired Fasting Glucose V12.72 History Personal Colonic Polyps 616.10 Vaginitis & Vulvovaginitis Unspec Office Visit 11/30/2010 11:15a Main Office Valeriy Steel M.D. 788.1 Dysuria 788.41 Urinary Frequency 595.0 Cystitis Acute Office Visit 09/14/2010 10:00a Main Office Valeriy Steel, 401.1 Hypertension Benign M.D. 272.8 Lipoid Metabolism Disorders Other 790.21 Impaired Fasting Glucose 783.21 Loss Of Weight 281.1 Vitamin B12 Deficiency Anemia Other 530.81 Esophageal Reflux 715.26 Osteoarthrosis Localized 2Ndy Lower Leg 706.2 Sebaceous Cyst 238.2 Neoplasm Uncertain Skin Office Visit 08/24/2010 1:45p Main Office Immanuel Marks.Slim Pablo & Gaby Sampson M.D. Trunk Office Visit 08/10/2010 4:30p Main Office Immanuel Marks.2 Bev & Gaby Sampson M.D. Trunk Office Visit 03/17/2010 8:55a Main Office Valeriy Steel, 401.1 Hypertension Benign M.DJaneth 272.8 Lipoid Metabolism Disorders Other 790.21 Impaired Fasting Glucose 715.26 Osteoarthrosis Localized 2Ndy Lower Leg 530.81 Esophageal Reflux 783.21 Loss Of Weight 787.24 Dysphagia, Pharyngoesophageal Phase Office Visit 09/14/2009 8:55a Main Office Valeriy Steel, 401.1 Hypertension Benign M.DJaneth 272.8 Lipoid Metabolism Disorders Other 790.21 Impaired Fasting Glucose 715.26 Osteoarthrosis Localized 2Ndy Lower Leg 530.81 Esophageal Reflux Office Visit 03/13/2009 10:15a Main Office Juventino Steel5.16 Osteoarthrwilliam Crooks M.D. Localized Prim Lower Leg 401.1 Hypertension Benign 272.8 Lipoid Metabolism Disorders Other 790.21 Impaired Fasting Glucose 537.89 Stomach And Duodenum Disorder Other 729.1 Myalgia & Myositis Unspec Office Visit 12/12/2008 10:45a Main Office Valeriy Steel 719.46 Pain Joint Lower M.D. Leg 715.16 Osteoarthrosis Localized Prim Lower Leg Office Visit 11/11/2008 1:30p Main Office Valeriy Steel 719.46 Pain Joint Lower M.D. Leg 715.26 Osteoarthrosis Localized 2Ndy Lower Leg Office Visit 10/24/2008 2:45p Main Office Damián 715.26 Osteoarthrosis Ayaan Crooks Localized 2Ndy Lower Leg Office Visit 09/09/2008 9:30a Main Office Damián V07.2 Prophylactic Ayaan Crooks Immunotherapy 272.8 Lipoid Metabolism Disorders Other 790.21 Impaired Fasting Glucose 715.26 Osteoarthrosis Localized 2Ndy Lower Leg 789.09 Pain Abdominal Other Spec Site 401.1 Hypertension Benign V03.82 Streptococcus Pneumoniae Vaccination Spec Other Office Visit 03/10/2008 10:15a Main Office Valeriy Steel, 401.1 Hypertension Benign M.DJaneth 272.8 Lipoid Metabolism Disorders Other 790.21 Impaired Fasting Glucose 715.26 Osteoarthrosis Localized 2Ndy Lower Leg 789.09 Pain Abdominal Other Spec Site Office Visit 01/31/2008 11:30a Main Office Constance Bolaños MD 465.9 URI Upper Respiratory Infections Acute Unspec Sites Office Visit 07/26/2007 1:45p Main Office Immanuel Caruso 461.0 Sinusitis Acute Ayaan Sampson Maxillary Office Visit 05/09/2007 1:15p Main Office Valeriy Steel, 401.1 Hypertension Benign M.DJaneth 272.8 Lipoid Metabolism Disorders Other 790.21 Impaired Fasting Glucose Office Visit 01/30/2007 11:00a Main Office Valeriy Steel, 401.1 Hypertension Benign M.DJaneth 272.8 Lipoid Metabolism Disorders Other 790.21 Impaired Fasting Glucose 715.26 Osteoarthrosis Localized 2Ndy Lower Leg V65.49 Counseling Other Spec V04.81 Need For Prophylactic Vaccination & Inoculation/Influenza Office Visit 07/10/2006 8:55a Main Office Valeriy Steel, 401.1 Hypertension Benign M.D. 272.8 Lipoid Metabolism Disorders Other 790.21 Impaired Fasting Glucose V76.51 Special Screening For Malignant Neoplasms Colon 715.26 Osteoarthrosis Localized 2Ndy Lower Leg 553.20 Hernia Ventral Unspec 789.00 Pain Abdominal Unspec Site Office Visit 02/07/2006 1:45p Main Office Valeriy Steel, 401.1 Hypertension Benign M.D. 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 793.2 Nonspecific(Abnormal)Findings On Radiological,Intrathoracic 722.52 Intervertebral Disc Degeneration Lumbar 812.20 FX Humerus Closed Unspec Part V76.51 Special Screening For Malignant Neoplasms Colon V06.5 Tetanus Diphtheria (DT) V07.2 Prophylactic Immunotherapy Office Visit 04/06/2005 9:45a Main Office Valeriy Steel, 272.8 Lipoid Metabolism M.D. Disorders Other 401.1 Hypertension Benign 790.21 Impaired Fasting Glucose 793.7 Nonspecific(Abnormal)Findings On Radiological,Musculoskeleta 722.52 Intervertebral Disc Degeneration Lumbar Office Visit 03/09/2005 10:00a Main Office Valeriy Steel, 724.4 Neuritis Or M.D. 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 at [facility]/14/2018 - Valeriy Steel M.D.R73.01 Impaired fasting glucoseComments: A1C 5.5% today, same as it was 03/29/17.I10 Essential (primary) hypertensionComments:BPs typically <140/90. Continue current Tx.Follow up: RTO 6 months recheck chronic problems.K21.9 Gastro-esophageal reflux disease without aczjnbjgslpG46.14 Dysphagia, pharyngoesophageal lenujR98.5 Low back painNew Medication:PT For Low Back Pain - please evaluate and treat, modalities as needed, instruct in hepComments:Suspect DDD/OA. Advised PT.Z12.31 Encounter for screening mammogram for malignant neoplasm ofNew Xrays:Mammography , Screening, Bilateral, Ordered: 04/14/18ollow up:Call central scheduling ([phone]) to schedule your mammogram
[2018-04-17 12:59] VITALS: BP 155/80
--- NOTE | 2018-04-17 13:38 | UC ---
UC General HPI - HPI Summary HPI Summary: 77 yo female c/o mid right low back x approx 3 days, leaned over to push a heavy jar of pennies off to the side and felt sudden pain in back. No p/d/w. No urinary issues. No abd pain. Pain seems to be better but still bothersome. She is concerned that with hx osteoporosis that she may have injured the spine worse than a sprain. No fever / chills. Hurts to bend over. Hurts to stand long period of time. Tylenol has seemed to help with pain. Otherwise generally no c/o - History of Current Complaint Chief Complaint: UCBackPain Stated Complaint: BACK PAIN Time Seen by Provider: 04/17/18 13:37 Hx Obtained From: Patient Pain Intensity: 5 - Allergy/Home Medications Allergies/Adverse Reactions: Allergies Allergy/AdvReac Type Severity Reaction Status Date / Time hydrocodone Allergy Intermediate nausea Verified 04/17/18 13:00 vomiting Penicillins Allergy Intermediate Hives Verified 04/17/18 13:00 Adhesive Tape [Silk Tape] Allergy Blisters Verified 04/17/18 13:00 ampicillin Allergy Hives Verified 04/17/18 13:00 latex Allergy Blisters Verified 04/17/18 13:00 propoxyphene Allergy Hallucinati Verified 04/17/18 13:00 [From Irais] ons PMH/Surg Hx/FS Hx/Imm Hx Previously Healthy: Yes Other History Of: Negative For: Anticoagulant Therapy - Surgical History Surgical History: Yes Surgery Procedure, Year, and Place: HYSTERECTOMY 1990, hiatal etqehx10/5/09, esophagus repair 04/11/09, upper GI series in 2009 found opening too tight to allow pass through,. [place]MBIL[place] [facility] [place]. UMBILICIAL HERNIA [facility] 2011 - Family History Known Family History: Positive: Unknown - Social History Alcohol Use: None Substance Use Type: None Smoking Status (MU): Never Smoked Tobacco Have You Smoked in the Last Year: No - Immunization History Most Recent Influenza Vaccination: 2012 Most Recent Tetanus Shot: 2005 Most Recent Pneumonia Vaccination: 09/09/08 Review of Systems All Other Systems Reviewed And Are Negative: Yes Constitutional: Positive: Negative Skin: Positive: Negative Eyes: Positive: Negative ENT: Positive: Negative Respiratory: Positive: Negative Cardiovascular: Positive: Negative Gastrointestinal: Positive: Negative Genitourinary: Positive: Negative Motor: Positive: Other - see hpi Neurovascular: Positive: Other - see hpi Musculoskeletal: Positive: Other: - see hpi Neurological: Positive: Other - see hpi Psychological: Positive: Negative Is Patient Immunocompromised?: No Physical Exam Triage Information Reviewed: Yes Appearance: Well-Appearing - sitting up. Examination performed in sitting and standing positions., Well-Nourished Vital Signs: Initial Vital Signs Temp 97.6 F 04/17/18 12:55 Pulse 68 04/17/18 12:55 Resp 20 04/17/18 12:55 BP 155/80 04/17/18 12:55 Pulse Ox 98 04/17/18 12:55 Vital Signs Reviewed: Yes Eye Exam: Normal - nad ENT Exam: Normal Neck exam: Normal - nontender Respiratory Exam: Normal Respiratory: Positive: Chest non-tender, Lungs clear, Normal breath sounds, No respiratory distress, No accessory muscle use Cardiovascular Exam: Normal Cardiovascular: Positive: RRR, Pulses Normal Abdominal Exam: Normal Abdomen Description: Positive: Nontender Musculoskeletal Exam: Normal - + lordotic curve. Tender left mid low back. Neurological Exam: Normal - denies b/b issues. No new p/d/w Psychological Exam: Normal Skin Exam: Normal - no visible or reported rash Course/Dx - Course Course Of Treatment: Reviewed urine dip with pt. Cx sent. Reviewed CT lumbar / thoracic reports with pt. Reviewed coa / tx plan. Encourage f/u PCP. Declines analgesic, ok with acetaminophen. Questions as posed answered to the best of my ability. - Diagnoses Provider Diagnosis: Acute back pain, Degenerative disc disease, Osteoarthritis Discharge - Discharge Plan Referrals: Valeriy Steel MD [Primary Care Provider] -
== END 2018-04-17 14:59 | disposition home or self-care (01) ==
LOC: UCEAST 12:52
DX: M54.5 Low back pain (principal); M51.36 Other intervertebral disc degeneration, lumbar region; M19.90 Unspecified osteoarthritis, unspecified site; M85.88 Other specified disorders of bone density and structure, other site; Z88.0 Allergy status to penicillin; Z88.5 Allergy status to narcotic agent
CPT/HCPCS: 72128; 72131; 81003; 87086; 99211; G0463

== ENCOUNTER 2018-07-22 12:51 | Emergency (ER) | payer MEDICARE, BC ==
[2018-07-22 13:05] VITALS: BP 151/78
--- NOTE | 2018-07-22 13:20 | UC ---
Abdominal Pain Female HPI - HPI Summary HPI Summary: patient has had multiple abdominal hernia repairs-about 1 hours ago she had sever pain--which has now mostly resolved--no nausea,vomiting diarrhea or constipation --able to eat and had usual bm today-- - History of Current Complaint Chief Complaint: UCAbdominalPain Stated Complaint: HERINA Time Seen by Provider: 07/22/18 13:12 Hx Obtained From: Patient ?: No Onset/Duration: Gradual Onset, Lasting Weeks - 4, Worse Since - today---but has now resolved Timing: Constant Pain Intensity: 2 Pain Scale Used: 0-10 Numeric Location: Discrete At: LLQ, Other - left side of umbilical Radiates: No Character: Tearing Aggravating Factor(s): Movement Alleviating Factor(s): Nothing Associated Signs and Symptoms: Positive: Negative Allergies/Adverse Reactions: Allergies Allergy/AdvReac Type Severity Reaction Status Date / Time hydrocodone Allergy Intermediate nausea Verified 07/22/18 14:15 vomiting Penicillins Allergy Intermediate Hives Verified 07/22/18 14:15 Adhesive Tape [Silk Tape] Allergy Blisters Verified 07/22/18 14:15 ampicillin Allergy Hives Verified 07/22/18 14:15 latex Allergy Blisters Verified 07/22/18 14:15 propoxyphene Allergy Hallucinati Verified 07/22/18 14:15 [From Irais] ons PMH/Surg Hx/FS Hx/Imm Hx Previously Healthy: No Cardiovascular History: Hypertension GI/ History: Gastroesophageal Reflux Other History Of: Negative For: Anticoagulant Therapy - Surgical History Surgical History: Yes Surgery Procedure, Year, and Place: HYSTERECTOMY 1990, hiatal jteiss19/5/09, esophagus repair 04/11/09, upper GI series in 2009 found opening too tight to allow pass through,. [place] [facility] [place]MBILICIAL HERNIA [facility] 2011 - Family History Known Family History: Positive: Unknown - Social History Occupation: Retired Lives: With Family Alcohol Use: None Substance Use Type: None Smoking Status (MU): Never Smoked Tobacco Have You Smoked in the Last Year: No - Immunization History Most Recent Influenza Vaccination: 2012 Most Recent Tetanus Shot: 2005 Most Recent Pneumonia Vaccination: 09/09/08 Review of Systems All Other Systems Reviewed And Are Negative: Yes Constitutional: Positive: Negative Skin: Positive: Negative Eyes: Positive: Negative ENT: Positive: Negative Respiratory: Positive: Negative Cardiovascular: Positive: Negative Gastrointestinal: Positive: Abdominal Pain Genitourinary: Positive: Negative Motor: Positive: Negative Neurovascular: Positive: Negative Musculoskeletal: Positive: Negative Neurological: Positive: Negative Psychological: Positive: Negative Is Patient Immunocompromised?: No Physical Exam Triage Information Reviewed: Yes Appearance: Well-Appearing, No Pain Distress, Well-Nourished Vital Signs: Initial Vital Signs Temp 98.8 F 07/22/18 13:03 Pulse 69 07/22/18 13:03 Resp 12 07/22/18 13:03 BP 151/78 07/22/18 13:03 Pulse Ox 100 07/22/18 13:03 Vital Signs Reviewed: Yes Eye Exam: Normal Eyes: Positive: Conjunctiva Clear ENT Exam: Normal ENT: Positive: Normal ENT inspection, Hearing grossly normal, Pharynx normal. Negative: Trismus, Muffled voice, Hoarse voice Neck exam: Normal Neck: Positive: Supple, Nontender, No Lymphadenopathy Respiratory Exam: Normal Respiratory: Positive: Chest non-tender, Lungs clear, Normal breath sounds, No respiratory distress, No accessory muscle use Cardiovascular Exam: Normal Cardiovascular: Positive: RRR, No Murmur, Pulses Normal, Brisk Capillary Refill Abdominal Exam: Other Abdomen Description: Positive: No Organomegaly, Soft, Other: - tender left side of abdomen, no buldging. Negative: CVA Tenderness (R), CVA Tenderness (L), Hepatomegaly, McBurney's Point Tenderness Bowel Sounds: Positive: Present Musculoskeletal Exam: Normal Musculoskeletal: Positive: Strength Intact, ROM Intact, No Edema Neurological Exam: Normal Neurological: Positive: Alert, Muscle Tone Normal Psychological Exam: Normal Skin Exam: Normal Abd Pain Female Course/Dx - Course Course Of Treatment: npo, to emergency department for further assessments that cannot be completed at urgent care - Differential Dx/Diagnosis Provider Diagnosis: Pain of muscle of abdomen Discharge - Sign-Out/Discharge Documenting (check all that apply): Patient Departure All imaging exams completed and their final reports reviewed: No Studies - Discharge Plan Condition: Stable Disposition: HOME Patient Education Materials: Acute Abdominal Pain (DC), Ventral Hernia (ED) Referrals: Valeriy Steel MD [Primary Care Provider] - Additional Instructions: nothing to eat or drink--to the emergency department for further evaluation of pain - Billing Disposition and Condition Condition: STABLE Disposition: Home - Attestation Statements Provider Attestation: The patient was not presented to me,I saw the patient and examined her. Last hernia repair 2 years ago. Exam: Patient lying comfortable in bed, not reporting any pain at this time. Abdomen: soft, non tender, no guarding or rigidity. BS+ normal. Upon abdominal crunch, small bulge noted in periumblical area, reducible, non tender. We discussed further options including going home and observation and follow up with Gen Surgeon tomorrow but daughter reports that she had so much pain when she was at home , that she is not comfortable taking her home as pain might come back and we planned on further evaluation in ER. Patient and her daughter expressed understanding . -Brandon Garrett MD
== END 2018-07-22 13:44 | disposition home or self-care (01) ==
LOC: UCEAST 12:51
DX: M79.18 Myalgia, other site (principal); I10 Essential (primary) hypertension; Z88.5 Allergy status to narcotic agent; Z88.0 Allergy status to penicillin; Z91.09 Other allergy status, other than to drugs and biological substances; Z91.040 Latex allergy status; Z88.1 Allergy status to other antibiotic agents
CPT/HCPCS: 99212; G0463

== ENCOUNTER → 2018-07-22 14:01 | Emergency (ER) | payer MEDICARE, BC ==
[2018-07-22 14:16] VITALS: BP 164/80
== END | disposition left against medical advice (07) ==
LOC: ED 14:01
DX: R10.9 Unspecified abdominal pain (principal); Z53.21 Procedure and treatment not carried out due to patient leaving prior to being seen by health care provider